=== PATIENT | female | born 1975 | race Caucasian/White ===

== ENCOUNTER 2023-03-18 10:37 | Outpatient (OUT) | payer OTHER, SELFPAY ==
--- NOTE | 2023-03-18 11:27 | PM.CN ---
Consult Note: HPI Data of Consult Patient: known to practice within the last 3 years Consult date: 03/18/23 Requesting Physician: Nic Shelley MD Primary Care Provider: Holly Chambers Consult Narrative Reason for consult: bilateral shoulder pain Narrative: this is a pleasant 47-year-old female who presents for assessment. She notes bilateral shoulder pain, left greater than right. She underwent left rotator cuff repair last August,but she has had persistent pain throughout this area. She underwent five sessions of physical therapy, but her insurance did not approve more sessions. She has increasing difficulty with abduction on the left. She states that she is to undergo repair on the right side this upcoming fall. She previously utilized [place], which provided relief. She currently has been utilizing ibuprofen, which provides minimal relief. She otherwise denies adverse medication side effects or loss of bowel or bladder control. cc:: CC: Nic Shelley MD Review of Systems ROS Status of ROS 10 or more systems reviewed and unremarkable except as noted in history and below Exam Constitutional Common normals: no apparent distress, oriented x3 and healthy appearing Respiratory Common normals: normal respiratory effort Effort & inspection: able to speak in complete sentences Extremity Common normals: normal to inspection Other: tenderness to palpation throughout the bilateral shoulders. Pain is elicited with abduction of the left arm. Pain is elicited with internal and external rotation of the left shoulder. Neuro Common normals: oriented x3, CN's II-XII intact bilaterally and no focal motor deficits Psych Common normals: mental status grossly normal and cooperative Assessment and Plan Assessment and Plan (1) Osteoarthritis of shoulders, bilateral: Plan this is a pleasant 47-year-old female who presents for assessment. She has increasing pain throughout her bilateral shoulders. At this point time, we discussed that it would be reasonable to trial [place] 5 mg twice a day when necessary. I would also like her to trial Celebrex 200 mg twice a day when necessary to see a much this helps with her inflammation. She is in agreement with this plan. We will obtain a urine drug seen today. She will follow up in 2-3 months or sooner, if needed.
== END 2023-03-18 10:38 ==
PROVIDERS: PCP Nurse Practitioner; Visit Provider Anesthesiology
DX: M19.012 Primary osteoarthritis, left shoulder (principal); M19.011 Primary osteoarthritis, right shoulder
CPT/HCPCS: G0463

== ENCOUNTER 2023-04-27 09:55 | Emergency (ER) | payer OTHER, SELFPAY ==
[2023-04-27 10:01] VITALS: BP 123/90; PULSE 103; RESP 18; TEMP 36.8; O2SAT 97; BMI 37.8
--- NOTE | 2023-04-27 11:00 | PC.NURSE ---
c/o dizziness when pt lays on left side, pt use to wear a hearing aid in left ear and is concerned this may be the cause
--- NOTE | 2023-04-27 13:12 | ED_ITS ---
HPI - General Adult General Chief complaint: Dizziness Stated complaint: dizziness Time Seen by Provider: 04/27/23 12:45 Source: patient Mode of arrival: walk-in History of Present Illness HPI narrative: Patient is a 47-year-old female who is presenting to the Emergency Room with chief Complaint of intermittent vertigo when she is lying down at nighttime to sleep or when she lays on her right ear. Patient does have a hearing aid that s he needs to get replaced on the right ear. Patient does have bilateral hearing aids. Patient is deaf. Patient does read lips very well for communication. Patient does have a hearing aid in her left ear, she does not have one in her right ear is Broke. Patient has new medical insurance. Patient is trying to find a new ENT that she can follow up with and also how she can go about Getting a new hearing aid. . All systems are negative except as noted/marked. All systems reviewed and otherwise negative. . Nurses note and vital signs reviewed and patient is not hypoxic. General: The patient appears well and in no apparent distress. Patient is resting comfortably on cart. Patient is not toxic, lethargic, or listless. Communication is with reading lips, patient's redevelops been discussed with her and communication is very clear effective with the patient. Skin: Warm, dry, no pallor noted. There is no rash noted. No petechiae, purpura. Head: Normocephalic, atraumatic Eye: Normal conjunctiva, no drainage, EOMI. PERRL Ears, Nose, Mouth, and Throat: oral mucosa is moist. Nares patent. Mouth without vesicles. Patient does have her hearing aid in her right ear, not her left ear. Patient's left ear shows mild air fluid levels behind left tympanic membrane, no perforation, no bulging, no erythema. No signs of acute infection. No signs of otitis externa. Patient has no tenderness to palpation to the external left ear. No left ear Periauricular lymphadenopathy. Cardiovascular: Regular Rate and Rhythm, no murmur, gallop, rub Respiratory: Patient is in no distress, no accessory muscle use, lungs are clear to auscultation, no wheezing, rales or rhonchi Back: non-tender, GI: soft, no tenderness Musculoskeletal: Patient has full range of motion of all of the extremities, no motor, sensory, or focal neurological deficits Neurological: A&O x3, normal speech Psychiatric: Cooperative Related Data Home Medications Medication Instructions Recorded Confirmed aripiprazole 10 mg tablet 10 mg PO DAILY 03/18/23 03/18/23 buspirone 10 mg tablet 10 mg PO DAILY 03/18/23 03/18/23 celecoxib 200 mg capsule (Celebrex) 200 mg PO BID 03/18/23 03/18/23 cetirizine 10 mg tablet 10 mg PO DAILY 03/18/23 03/18/23 duloxetine 30 mg capsule,delayed 30 mg PO DAILY 03/18/23 03/18/23 release duloxetine 60 mg capsule,delayed 60 mg PO DAILY 03/18/23 03/18/23 release hydrochlorothiazide 25 mg tablet 25 mg PO QAM 03/18/23 03/18/23 hydrocodone 5 mg-acetaminophen 325 1 tab PO BID 03/18/23 03/18/23 mg tablet albuterol sulfate 90 mcg/actuation inhalation 04/27/23 aerosol inhaler atorvastatin 20 mg tablet 20 mg PO DAILY 04/27/23 04/27/23 diclofenac sodium 75 mg 75 mg PO DAILY 04/27/23 04/27/23 tablet,delayed release Previous Rx's Medication Instructions Recorded meclizine 50 mg tablet (Antivert) 50 mg PO DAILY PRN dizziness #7 04/27/23 tabs Allergies Allergy/AdvReac Type Severity Reaction Status Date / Time promethazine [From Phenergan] Allergy Intermediate Rash Verified 04/27/23 10:40 Exam Constitutional Vital Signs, click to edit/add: Last Vital Signs Temp 98.2 F 04/27/23 10:01 Pulse 103 H 04/27/23 10:01 Resp 18 04/27/23 10:01 BP 123/90 H 04/27/23 10:01 Pulse Ox 97 04/27/23 10:01 O2 Del Method Room Air 04/27/23 10:59 Course Vital Signs Vital signs: Vital Signs Temperature 98.2 F 04/27/23 10:01 Pulse Rate 103 H 04/27/23 10:01 Respiratory Rate 18 04/27/23 10:01 Blood Pressure 123/90 H 04/27/23 10:01 Pulse Oximetry 97 04/27/23 10:01 Oxygen Delivery Method Room Air 04/27/23 10:01 Temperature 98.2 F 04/27/23 10:01 Pulse Rate 103 H 04/27/23 10:01 Respiratory Rate 18 04/27/23 10:01 Blood Pressure 123/90 H 04/27/23 10:01 Pulse Oximetry 97 04/27/23 10:01 Oxygen Delivery Method Room Air 04/27/23 10:59 Medical Decision Making MDM Narrative Medical decision making narrative: Patient is evidence of small amount of fluid behind right ear that could be Causing some equilibrium issues or vertigo nighttime when she is lying down. Patient was educated on using Zyrtec or Claritin during the day, Benadryl nighttime. Patient is to use Flonase as well. Education done at bedside and on discharge paperwork. Patient is also given Dr. Lai name and number for follow-up for ENT concerns. Patient was extremely nice. Blameless apologies were given feeling to stay secondary to the Emergency Room volume this morning. Patient understood and was very nice. Discharge Plan Discharge Chief Complaint: Dizziness Clinical Impression: Sinus congestion, Pain in right ear, Vertigo Patient Disposition: Home, Self-Care Condition: Fair Prescriptions / Home Meds: New Antivert 50 mg tablet 50 mg PO DAILY PRN (Reason: dizziness) Qty: 7 0RF No Action duloxetine 30 mg capsule,delayed release(DR/EC) 30 mg PO DAILY Rx Instructions: AT BEDTIME duloxetine 60 mg capsule,delayed release(DR/EC) 60 mg PO DAILY cetirizine 10 mg tablet 10 mg PO DAILY buspirone 10 mg tablet 10 mg PO DAILY hydrochlorothiazide 25 mg tablet 25 mg PO QAM aripiprazole 10 mg tablet 10 mg PO DAILY hydrocodone-acetaminophen 5-325 mg tablet 1 tab PO BID celecoxib [Celebrex] 200 mg capsule 200 mg PO BID atorvastatin 20 mg tablet 20 mg PO DAILY albuterol sulfate 90 mcg/actuation HFA aerosol inhaler INHALATION diclofenac sodium 75 mg tablet,delayed release (DR/EC) 75 mg PO DAILY Instructions: Vertigo (ED), Earache (ED), Dizziness (ED), Cold Symptoms (ED) Additional Instructions: Use [id number] Claritin or Zyrtec during the day, Benadryl nighttime to help dry up some of your sinus congestion. Use [id number] Flonase nasal spray to help with sinus congestion, use Flonase daily. If vertigo would occur again, he can use the meclizine to help with vertigo while laying down at nighttime. Education was given on vertigo as well. Follow-up with ENT, name and number provided. Stand Alone Forms: Portal Instructions Referrals: Melly Lai MD [Physician] - 1 week Holly Chambers [Primary Care Provider] - 1 week
== END 2023-04-27 13:13 | disposition home or self-care (01) ==
PROVIDERS: Emergency Provider Emergency Medicine; PCP Nurse Practitioner
DX: R42 Dizziness and giddiness (principal); H92.01 Otalgia, right ear; R09.81 Nasal congestion; H91.93 Unspecified hearing loss, bilateral; Z79.899 Other long term (current) drug therapy
CPT/HCPCS: 99281

== ENCOUNTER 2023-08-19 07:51 | Outpatient (OUT) | payer OTHER, SELFPAY ==
--- NOTE | 2023-08-19 08:02 | MM_ITS ---
Patient Name: PRASAD REAGAN MR#: [id number] : 1975 Exam Date: 08/19/2023 Ordering Doctor: TULIO Chambers CNP RADIOLOGY REPORT PROCEDURE: MM TOMOSYNTHESIS SCREENING BI COMPARISON: [facility] MAMM SCREEN 3D YOANDY CAD, 06/22/2022. MG MAMM DIAGNOSTIC 3D YOANDY CAD, 06/20/2021. MG MAMM YOANDY DIAG W CAD, 02/02/2014. INDICATIONS: screening Calculator Name NCI Breast Cancer Risk Assessment Tool 5 Year Breast Cancer Risk 1.70% Lifetime Breast Cancer Risk 16.50% Personal Breast Cancer No Personal Ovarian Cancer No Treatments None Family Cancers Sister with breast cancer at age 46. LOCATION: [facility] BREAST COMPOSITION: Heterogeneously dense,which may obscure small masses. FINDINGS: DIAGNOSTIC CATEGORY 2--BENIGN FINDING: RIGHT BREAST: No significant suspicious finding. No significant change has occurred. LEFT BREAST: No significant suspicious finding. Stable benign-appearing lymph node within the anterior lower-inner quadrant. No significant change has occurred. RECOMMENDATIONS: ROUTINE MAMMOGRAM AND CLINICAL EVALUATION IN 12 MONTHS. PLEASE NOTE: A NORMAL MAMMOGRAM DOES NOT EXCLUDE THE POSSIBILITY OF BREAST CANCER. A CLINICALLY SUSPICIOUS PALPABLE LUMP SHOULD BE BIOPSIED. Dictated by: Zane Muñoz M.D. on 08/20/2023 at 13:23 Approved by: Zane Muñoz M.D. on 08/20/2023 at 13:32
--- OUTSIDE RECORDS SUMMARY | 2023-09-24 17:38 | XMS_ITS | CCD ---
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 Name Role Phone Ant CATALAN Attending Unavailable GALLAGHER, MAXWELL Consulting Unavailable AICHHOLZ, CIGAR PATCHER HOLLY Primary Care Unavailable EMMA, DR CHRISTIAN Barros Attending Unavailable EMMA, DR CHRISTIAN Barros Admitting Unavailable GALLAGHER, MAXWELL Consulting Unavailable AICHHOLZ, CIGAR PATCHER HOLLY Primary Care Unavailable EMMA, DR CHRISTIAN Barros Attending Unavailable EMMA, DR CHRISTIAN Barros Admitting Unavailable GALLAGHER, MAXWELL Consulting Unavailable AICHHOLZ, CIGAR PATCHER HOLLY Primary Care Unavailable EMMA, DR CHRISTIAN Barros Attending Unavailable EMMA, DR CHRISTIAN Barros Admitting Unavailable GALLAGHER, MAXWELL Consulting Unavailable AICHHOLZ, CIGAR PATCHER HOLLY Primary Care Unavailable EMMA, DR CHRISTIAN Barros Attending Unavailable EMMA, DR CHRISTIAN Barros Admitting Unavailable GALLAGHER, MAXWELL Consulting Unavailable AICHHOLZ, CIGAR PATCHER HOLLY Primary Care Unavailable EMMA, DR CHRISTIAN Barros Attending Unavailable EMMA, DR CHRISTIAN Barros Admitting Unavailable GALLAGHER, MAXWELL Consulting Unavailable AICHHOLZ, CIGAR PATCHER HOLLY Primary Care Unavailable EMMA, DR CHRISTIAN Barros Attending Unavailable EMMA, DR CHRISTIAN Barros Admitting Unavailable PAY, DR APODACA Consulting Unavailable PAY, DR APODACA Attending Unavailable PAY, DR APODACA Admitting Unavailable AICHHOLZ, CIGAR PATCHER HOLLY Primary Care Unavailable DR ISAIAS FAIRBANKS Consulting Unavailable FRAN SERRANO Attending Unavailable FRAN SERRANO Admitting Unavailable AICHHOLZ, CIGAR PATCHER HOLLY Primary Care Unavailable FRAN SERRANO Consulting Unavailable DR ISAIAS FAIRBANKS Consulting Unavailable FRAN SERRANO Attending Unavailable FRAN SERRANO Admitting Unavailable AICHHOLZ, CIGAR PATCHER HOLLY Primary Care Unavailable FRAN SERRANO Consulting Unavailable DR ISAIAS FAIRBANKS Consulting Unavailable AICHHOLZ, CIGAR PATCHER HOLLY Primary Care Unavailable KAREN KRAUSE Attending Unavailable KAREN KRAUSE Admitting Unavailable KAREN KRAUSE Consulting Unavailable DR Dipak Marks Consulting Unavailable AICHHOLZ, CIGAR PATCHER HOLLY Primary Care Unavailable AICHHOLZ, CIGAR PATCHER HOLLY Attending Unavailable AICHHOLZ, CIGAR PATCHER HOLLY Admitting Unavailable AICHHOLZ, CIGAR PATCHER HOLLY Consulting Unavailable DR ISAIAS FAIRBANKS Consulting Unavailable AICHHOLZ, CIGAR PATCHER HOLLY Primary Care Unavailable GALLAGHER, MAXWELL Attending Unavailable GALLAGHER, MAXWELL Admitting Unavailable GALLAGHER, MAXWELL Consulting Unavailable AICHHOLZ, CIGAR PATCHER HOLLY Consulting Unavailable AICHHOLZ, CIGAR PATCHER HOLLY Primary Care Unavailable AICHHOLZ, CIGAR PATCHER HOLLY Attending Unavailable AICHHOLZ, CIGAR PATCHER HOLLY Admitting Unavailable AICHHOLZ, CIGAR PATCHER HOLLY Consulting Unavailable AICHHOLZ, CIGAR PATCHER HOLLY Primary Care Unavailable AICHHOLZ, CIGAR PATCHER HOLLY Attending Unavailable AICHHOLZ, CIGAR PATCHER HOLLY Admitting Unavailable DR ISAIAS FAIRBANKS Consulting Unavailable DIPAK DIAZ Consulting Unavailable Nic Shelley MD Attending Unavailable Allergies Allergy Classification Reported Allergen(s) Allergy Type Date of Onset Reaction(s) Facility (1 source) Escitalopram; Translations: [Lexapro] Drug Allergy [facility] Repository (1 source) [place] Drug Allergy [facility] Repository Problems Active Problems Problem Classification Problem Date Documented Da te Episodic/Chronic Other nervous system disorders (1 source) Other chronic pain; Translations: [OTHER CHRONIC PAIN] Onset: 02-20-2022 Chronic Other non-traumatic joint disorders (5 sources) Pain in left shoulder; Translations: [PAIN IN LEFT SHOULDER] Onset: 06-29-2022 Episodic Other non-traumatic joint disorders (5 sources) Pain in right shoulder; Translations: [PAIN IN RIGHT SHOULDER] Onset: 02-14-2022 Episodic Spondylosis; intervertebral disc disorders; other back problems (1 source) Cervicalgia; Translations: [CERVICALGIA] Onset: 08-20-2022 Episodic Substance-related disorders (1 source) Nicotine dependence, cigarettes, uncomplicated; Translations: [NICOTINE DEPEND CIGARETTES UNCOMP] Onset: 05-08-2022 Chronic Past or Other Problems Problem Classification Problem Date Documented Da te Episodic/Chronic E Codes: Fall (2 sources) Unspecified fall, initial encounter; Translations: [Fall on same level from slipping, tripping and stumbling with subsequent striking against unspecified object, initial encounter] Onset: 05-08-2022 Episodic Other aftercare (1 source) Other superintendent [employer] (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) drug therapy; Translations: [OTH HALFWAY CURRENT DRUG THERAPY] Onset: 07-17-2022 Episodic Other connective tissue disease (4 sources) Pain in left foot; Translations: [PAIN IN LEFT FOOT] Onset: 07-17-2022 Episodic Other connective tissue disease (4 sources) Bicipital tendinitis, left shoulder; Translations: [BICIPITAL TENDINITIS LEFT SHOULDER] Onset: 05-17-2022 Episodic Other connective tissue disease (3 sources) Pain in left arm; Translations: [PAIN IN LEFT ARM] Onset: 05-02-2022 Episodic Other connective tissue disease (1 source) Unspecified rotator cuff tear or rupture of right shoulder, not specified as traumatic; Translations: [UNS ROT CUFF TEAR/RUPT RT SHOULDER] Onset: 01-01-2022 Episodic Other non-traumatic joint disorders (4 sources) Pain in left ankle and joints of left foot; Translations: [PAIN IN LEFT ANKLE] Onset: 07-16-2022 Episodic Other non-traumatic joint disorders (4 sources) Pain in unspecified joint; Translations: [PAIN IN UNSPECIFIED JOINT] Onset: 04-20-2022 Episodic Other non-traumatic joint disorders (1 source) Pain in left elbow; Translations: [PAIN IN LEFT ELBOW] Onset: 01-01-2022 Episodic Other nutritional; endocrine; and metabolic disorders (4 sources) Polydipsia; Translations: [POLYDIPSIA] Onset: 03-21-2022 Episodic Other screening for suspected conditions (not mental disorders or infectious disease) (4 sources) Encounter for screening mammogram for malignant neoplasm of breast; Translations: [ENC SCR MAMMO MALIG NEOPLASM BREAST] Onset: 06-22-2022 Episodic Residual codes; unclassified (1 source) Family history of malignant neoplasm of breast; Translations: [FAMILY HX MALIG NEOPLASM OF BREAST] Onset: 06-26-2022 Episodic Sprains and strains (2 sources) Sprain of unspecified ligament of left ankle, initial encounter; Translations: [Strain of other muscles, fascia and tendons at shoulder and upper arm level, left arm, initial encounter] Onset: 05-08-2022 Episodic Superficial injury; contusion (3 sources) Abrasion, right knee, initial encounter; Translations: [Contusion of left elbow, initial encounter] Onset: 05-08-2022 Episodic Results Test Name Value Interpretation Reference Range Facil ity MRI Shoulder w/o Lefton MRI Shoulder w/o Left HISTORY: Shoulder pain radiating into the elbow. Patient with syndrome. Bursitis. Adhesive capsulitis. TECHNIQUE: Multiplanar multisequence MRI of the shoulder was performed without contrast. COMPARISON: Shoulder radiographs 09/11/2022. FINDINGS: The acromioclavicular joint is intact. The acromion is curved. Coracoclavicular ligament intact. Small amount of subacromial/subdeltoid bursal fluid containing numerous tiny loose bodies. Full-thickness tear of distal anterior mid fibers of supraspinatus tendon at the footprint measuring approximately 9 mm in AP dimension. Minimal retraction of fibers. Tiny intrasubstance tear along the myotendinous junction of supraspinatus. Posterior fibers remain intact. Moderate supraspinatus tendinosis. Mild infraspinatus tendinosis. Subscapularis and teres minor tendon are intact. No atrophy or fatty infiltration of the rotator cuff musculature. The intra-articular and extra-articular long head biceps tendon is intact. The biceps tendon resides within the bicipital groove. Soft tissue thickening and hyperintense signal within the rotator interval can be seen with adhesive capsulitis. No labral tear identified. No well-defined or measurable cartilage defect identified. No glenohumeral joint effusion. IMPRESSION: Full-thickness tear of the distal anterior and mid fibers of supraspinatus tendon. Soft tissue thickening and hyperintense signal within the rotator interval can be seen with adhesive capsulitis. 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 Sylwia ble to display) August 22, 2022 KENNA TREVIÑO [address] [place] [address] KENNA TREVIÑO 1975 Dear Kenna , We have been trying to reach you with no success. It is important that you return our call regarding your from Holly Chambers upon receiving this letter. Also, at the time of your call, please provide us with your current information. Thank you for your prompt attention to this matter. 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 MG MAMM SCREEN YOANDY W CAD, 04/25/2018. INDICATIONS: Screening mammography Calculator Name NCI Breast Cancer Risk Assessment Tool 5 Year Breast Cancer Risk 1.60% Lifetime Breast Cancer Risk 16.70% Personal Breast Cancer No Personal Ovarian Cancer No Treatments None Family Cancers Sister with breast cancer at age 46. LOCATION: [facility] BREAST COMPOSITION: Heterogeneously dense,which may obscure small masses. FINDINGS: DIAGNOSTIC CATEGORY 2--BENIGN FINDING. NO CHANGE FROM COMPARISON. Scattered benign-appearing nodules are present. Scattered benign-appearing calcifications are present. Scattered benign-appearing lymph nodes are present. RIGHT BREAST: No significant suspicious finding. LEFT BREAST: No significant suspicious finding. Stable well-circumscribed nodule lower inner quadrant, anterior breast. RECOMMENDATIONS: ROUTINE MAMMOGRAM AND CLINICAL EVALUATION IN 12 MONTHS. PLEASE NOTE: A NORMAL MAMMOGRAM DOES NOT EXCLUDE THE POSSIBILITY OF BREAST CANCER. A CLINICALLY SUSPICIOUS PALPABLE LUMP SHOULD BE BIOPSIED. Dictated by: Dipak Marks MD on 06/22/2022 at 11:06 Approved by: Dipak Marks MD on 06/22/2022 at 11:08 Normal [facility] l [place]OLTON by IFAon 04-23-2022 Antinuclear Antibodies, IFA Negative Normal [facility] Comment on above: Result Comment: Nega tive <1:80 Borderline 1:80 Positive >1:80 ICAP nomenclature: AC-0 For more information about Hep-2 cell patterns use ANApatterns.org, the official website for the International Consensus on Antinuclear Antibody ([place]) Patterns (ICAP). Performed By: #### A NAIFA #### [facility] [address] [address] [address] Lucius Mcmahon XR CSPINE 2_3 VIEWSon 2021 XR CSPINE 2_3 VIEWS EXAMINATION: XR CSPI NE 2_3 VIEWS HISTORY: Pain of left shoulder joint ; chronic left neck and arm pain COMPARISON: No relevant comparison available. FINDINGS: BONES: Straightening of the normal lordotic curvature. No significant spondylosis, scoliosis, fracture, or visible bony lesion. DISC SPACES: Minimal narrowing C5-C6. PARASPINOUS: Negative. No paraspinous abnormality is seen. OTHER: Negative. IMPRESSION: 1. C5-C6 minimal disc height reduction, likely early degenerative changes. 2. Straightening of normal lordotic curvature; positioning versus muscle spasm. Electronically authenticated by: ISAIAS FAIRBANKS Date: 2022-04-22 08:21 Normal [facility] l ANTISTREPTOLYSIN O AB (ASO)o n 04-21-2022 Antistreptolysin O Ab 26.6 IU/mL Normal 0.0-200.0 [facility] Comment on above: Performed By: #### A SOAB ####[facility] [id number] [address]Dr. Lucius Mcmahon RHEUMATOID FACTORon 04-21-20 22 RA Latex Turbid. <10.0 Normal <14.[address] [facility] Comment on above: Performed By: #### R F #### [facility] [id number] Lucius Mcmahon XR SHOULDER LT 2V or >on XR SHOULDER LT 2V or > EXAM: XR SHOULDER LT 2V or > HISTORY: Left shoulder pain COMPARISON: None. TECHNIQUE: 3 views FINDINGS: No osseous lesion, fracture, dislocation or subluxation. Joint spaces are normal. No visualized effusion. No visualized soft tissue edema. IMPRESSION: Normal x-rays Electronically authenticated by: DIPAK DIAZ Date: 2022-04-21 21:29 Normal [facility] l CBC AUTO DIFFon 04-20-2022 BASO # 0.0 103/ul Normal 0.0-0.1 [facility] Comment on above: Performed By: #### C BC #### [facility] [address] [place] [address] Dr. Lucius Mcmahon Basophils/100 WBC (Bld) 0.5 % Normal 0.2-2.0 [facility] Comment on above: Performed By: #### C BC #### [facility] [address] [place] [address] Dr. Lucius Mcmahon EO # 0.2 103/ul Normal 0.0-0.7 [facility] Comment on above: Performed By: #### C BC #### [facility] [address] [place] [address] Dr. Lucius Mcmahon Eosinophils/100 WBC (Bld) 2.2 % Normal 0.9-7.0 [facility] Comment on above: Performed By: #### C BC #### [facility] [address] [place] [address] Dr. Lucius Mcmahon Erythrocyte distribution wid th (RBC) [Ratio] 13.4 % Normal 11.0-15.0 [facility] Comment on above: Performed By: #### C BC #### [facility] [address] [place] [address] Dr. Lucius Mcmahon Hematocrit (Bld) [Volume fraction] 46.3 % Normal 3 6.0-48.0 [facility] Comment on above: Performed By: #### C BC #### [facility] [address] [place] [address] Dr. Lucius Mcmahon Hemoglobin (Bld) [Mass/Vol] 14.9 g/dL Normal 12.0-16. 0 [facility] Comment on above: Performed By: #### C BC #### [facility] [address] [place] [address] Dr. Lucius Mcmahon IG # 0.05 10e3/ul Critically high 0.00-0.03 [facility] Comment on above: Performed By: #### C BC #### [facility] [address] [place] [address] Dr. Lucius Mcmahon IG % 0.7 % Critically high 0.0-0.5 [facility] Comment on above: Performed By: #### C BC #### [facility] [address] [place] [address] Dr. Lucius Mcmahon LYMPH # 2.4 103/ul Normal 1.2-3.8 [facility] Comment on above: Performed By: #### C BC #### [facility] [address] [place] [address] Dr. Lucius Mcmahon Lymphocytes/100 WBC (Bld) 32.0 % Normal 20.5-60.0 [facility] Comment on above: Performed By: #### C BC #### [facility] [address] [place] [address] Dr. Lucius Mcmahon MANUAL DIFF REQ NO Normal [facility] Comment on above: Performed By: #### C BC #### [facility] [address] [place] [address] Dr. Lucius Mcmahon MCH (RBC) [Entitic mass] 28.1 pg Normal 26.7-34.0 [facility] Comment on above: Performed By: #### C BC #### [facility] [address] [place] [address] Dr. Lucius Mcmahon MCHC (RBC) [Mass/Vol] 32.2 g/dL Normal 29.9-35.2 [facility] Comment on above: Performed By: #### C BC #### [facility] [address] [place] [address] Dr. Lucius Mcmahon MCV (RBC) [Entitic vol] 87.2 fL Normal 81.0-99.0 [facility] Comment on above: Performed By: #### C BC #### [facility] [address] [place] [address] Dr. Lucius Mcmahon MONO # 0.5 103/ul Normal 0.3-0.8 [facility] Comment on above: Performed By: #### C BC #### [facility] [address] [address] [address] Lucius Mcmahon Monocytes/100 WBC (Bld) 7.2 % Normal 1.7-12.0 [facility] Comment on above: Performed By: #### C BC #### [facility] [address] [place] [address] Dr. Lucius Mcmahon NEUT # 4.3 103/ul Normal 1.4-6.5 [facility] Comment on above: Performed By: #### C BC #### [facility] [address] [place] [address] Dr. Lucius Mcmahon Neutrophils/100 WBC (Bld) 57.4 % Normal 43.0-75.0 [facility] Comment on above: Performed By: #### C BC #### [facility] [address] [place] [address] Dr. Lucius Mcmahon Platelet mean volume (Bld) [Entitic vol] 9.3 fL Critically low 9.5-13.5 [facility] Comment on above: Performed By: #### C BC #### [facility] [address] [place] [address] Dr. Lucius Mcmahon PLT 279 103/ul Normal 150-450 [facility] Comment on above: Performed By: #### C BC #### [facility] [address] [place] [address] Dr. Lucius Mcmahon RBC 5.31 106/ul Normal 4.20-5.40 [facility] Comment on above: Performed By: #### C BC #### [facility] [address] [place] [address] Dr. Lucius Mcmahon WBC 7.4 103/ul Normal 4.0-11.0 [facility] Comment on above: Performed By: #### C BC #### [facility] [address] [place] [address] Dr. Lucius Mcmahon CRPon 04-20-2022 CRP [Mass/Vol] mg/L Normal <=1.0 [facility] Comment on above: Performed By: #### C RP, URIC ####[facility] [id number] [address]Dr. Lucius Mcmahon SED RATE WESTERGRENon 2021 SED RATE 14 mm/hr Normal <=20 [facility] Comment on above: Performed By: #### S EDR #### [facility] [address] [address] [address] Lucius Mcmahon URIC ACID SERUMon 04-20-2022 Urate [Mass/Vol] 4.4 mg/dL Normal 2.6-6.0 [facility] Comment on above: Performed By: #### C RP, URIC ####[facility] [id number] [address]Dr. Lucius Mcmahon GLYCOHEMOGLOBIN A1Con 2021 ADA RECOMMENDATION SEE BELOW Normal [facility] Comment on above: Result Comment: ADA RECOMMENDED LIMIT 4.0 - 6.0 ADA THERAPEUTIC TARGET < 7.0 ACTION SUGGESTED > 7.0 Performed By: #### A 1C #### [facility] [address] [address] [address] Lucius Mcmahon Glucose [Mass/Vol] 108 mg/dL Normal [facility] Comment on above: Performed By: #### A 1C #### [facility] [address] [address] [address] Lucius Mcmahon HbA1c (Bld) [Mass fraction] 5.4 % Normal 4.5-6.2 [facility] Comment on above: Performed By: #### A 1C #### [facility] [address] [address] [address] Lucius Mcmahon PROF CHEM 8 (BAS METB)on Anion gap [Moles/Vol] 10.6 mmol/L Normal [facility] Comment on above: Performed By: #### B MP #### [facility] [address] [place] [address] Dr. Lucius Mcmahon Calcium [Mass/Vol] 8.5 mg/dL Normal 8.5-10.1 [facility] Comment on above: Performed By: #### B MP #### [facility] [address] [address] [address] Lucius Mcmahon Chloride [Moles/Vol] 104 mmol/L Normal 98-107 [facility] Comment on above: Performed By: #### B MP #### [facility] [address] [address] [address] Lucius Mcmahon CO2 [Moles/Vol] 26.8 mmol/L Normal 21.0-32.[address] [facility] Comment on above: Performed By: #### B MP #### [facility] [address] [address] [address] Lucius Mcmahon Creatinine [Mass/Vol] 0.64 mg/dL Normal 0.55-1.02 [facility] Comment on above: Performed By: #### B MP #### [facility] [address] [place] [address] Dr. Lucius Mcmahon EGFR-AF BELIZEAN >60 Normal >=[address] [facility] Comment on above: Performed By: #### B MP #### [facility] [address] [address] [address] Lucius Mcmahon EGFR-NON AF BELIZEAN >60 Normal >=60 [facility] Comment on above: Performed By: #### B MP #### [facility] [address] [address] [address] Lucius Mcmahon Glucose [Mass/Vol] 93 mg/dL Normal 74-106 [facility] Comment on above: Performed By: #### B MP #### [facility] [address] [address] [address] Lucius Mcmahon Potassium [Moles/Vol] 4.4 mmol/L Normal 3.5-5.1 [facility] Comment on above: Performed By: #### B MP #### [facility] [address] [address] [address] Lucius Mcmahon Sodium [Moles/Vol] 137 mmol/L Normal 136-145 [facility] Comment on above: Performed By: #### B MP #### [facility] [address] [address] [address] Lucius Mcmahon Urea nitrogen [Mass/Vol] 10.0 mg/dL Normal 7.0-18.0 [facility] Comment on above: Performed By: #### B MP #### [facility] [address] [address] [address] Lucius Mcmahon Urea nitrogen/Creatinine [Mass ratio] 15.6 mg/mg Normal [facility] Comment on above: Performed By: #### B MP #### [facility] [address] [address] [address] Lucius Mcmahon Encounters Encounter Date Encounter Type Care Provider Facility Start: 03-18-2023 End: 03-19-2023 ambulatory Nic Shelley MD Facility: [facility] Start: 11-15-2022 ambulatory MAXWELL GALLAGHER Facility:[facility] Start: 10-24-2022 ambulatory Ant CATALAN [facility] Start: 08-16-2022 End: 08-17-2022 ambulatory MAXWELL GALLAGHER Facility:[facility] Start: 08-16-2022 ambulatory Ant CATALAN Facility:[facility] Start: 07-17-2022 End: 07-18-[address] ISAIAS FAIRBANKS Facility:[facility] Start: 07-16-2022 End: 07-16-[address] ISAIAS FAIRBANKS Facility:[facility] Start: 06-22-2022 End: 06-23-2022 ambulatory DR Dipak Marks Facility:[facility] Start: 05-17-2022 End: 05-18-2022 ambulatory MAX[place] GALLAGHER Facility:[facility] Start: 05-02-2022 End: 05-02-[address] ISAIAS FAIRBANKS Facility:[facility] Start: 04-20-2022 End: 04-21-2022 ambulatory TULIO CHAMBERS Facility:[facility] Start: 03-21-2022 End: 03-22-2022 ambulatory TULIO CHAMBERS Facility:[facility] Start: 03-01-2022 ambulatory [place] GALLAGHER Facility:H 1 Start: 02-14-2022 End: 02-15-2022 ambulatory MAX[place] GALLAGHER Facility:[facility] Start: 12-27-2021 End: 12-28-[address] ISAIAS FAIRBANKS Facility:[facility] Start: 12-22-2021 End: 12-22-[address] CONSTANZA PAY Facility:[facility]1 Payers Date Payer Category Payer Private Health Insurance 1975 Unknown [id number] 2.16.8 [id number] 1974 Unknown [id number] 2.16.84 [id number] 1974 Unknown [id number] 2.16.84 [id number] 1974 Unknown [id number] 2.16.84 [id number] 1974 Unknown [id number] 2.16.84 [id number] 1974 Unknown [id number] 2.16.84 [id number] 1974 Unknown [id number] 2.16.84 [id number] 1974 Unknown [id number] 2.16.84 [id number] 1974 Unknown [id number] 2.16.84 [id number] 1974 Unknown [id number] 2.16.84 [id number] 1974 Unknown [id number] 2.16.84 [id number] 1974 Unknown [id number] 2.16.84 [id number] 1974 Unknown [id number] 2.16.84 [id number] 1974 Unknown [id number] 2.16.84 [id number] 1974 Unknown [id number] 2.16.84 [id number] 1974 Unknown [id number] 2.16. [id number] 1960 Medicaid [id number] Clinical Notes 12-27-2021 to 08-16-2022 Note Date & Type Note Facility 08-16-2022 Note CONSULTATION CONSULTATION DATE: 08/16/2022 HISTORY OF PRESENT ILLNESS: This is a 46-year-old female returning to the clinic for a three month follow up for her chronic neck and shoulder pain. The patient has been seen here multiple times, but is also under the care of Orthopedics at [facility]. At her last office visit on 05/17/2022, she had a left bicipital tendon injection which afforded her short term relief. She has been under the care of [facility] for some time and, back in February of 2022 was found to have a frozen shoulder as well as a rotator cuff tear. At that time, they had prescribed physical therapy, which the patient has not been overly compliant with. It seems, according to the patient, that there is a communication problem with possibly scheduling. She does have a significant amount of pain to her shoulder. Patient states it does wake her up at night. She recently had a left ankle sprain and has been seen by Dr. Prabhakar's office, and she is currently in a boot. Current medications include duloxetine 60 mg daily, diclofenac 75 mg b.i.d. and [place] 5/325 b.i.d. She is in need of a refill for her diclofenac and [place]. At her last subsequent appointments, education was given to the patient regarding following orders and being compliant with what Orthopedics requests for her shoulder and patient does agree; however, there is minimal to no follow through. Patient's REVIEW OF SYSTEMS / PAST MEDICAL HISTORY / ALLERGIES and IMAGES have been reviewed and they are noted on the chart. PHYSICAL EXAM: VITAL SIGNS: Blood pressure is 156/97. Heart rate is 103. Temperature is 98. She is 5'5 , weighs 113 kg. GENERAL IMPRESSION: Pleasant, appropriate, no acute distress. FOCUSED EXAM - NECK: Range of motion is functional in lateral rotation and flexion/extension. Bilateral cervical trapezius muscles are taut but non-spasmodic. MUSCULOSKELETAL: No vasomotor changes noted to bilateral upper extremities. Anterior and posterior tenderness to palpation to bilateral shoulders, right greater than left. Range of motion is decreased in lateral rotation and adduction/abduction. DIAGNOSIS: Bilateral shoulder pain and cervicalgia. PLAN: We will refill her diclofenac 75 mg b.i.d., [place] 5/325 b.i.d. I explained in detail to the patient that it is her responsibility to call [facility] to obtain a new physical therapy order and to follow through with Ortho's directions. No pain procedures will be done on her shoulder under physical therapy is completed and she has followed through with Orthopedics and their recommendations. I further note that, due to patient's non-compliance with physical therapy, that following this current [place] refill, that any further refills are contingent upon evidence of her at least starting her physical therapy per [facility]. Patient has been aware of this and states agreement of. We will see her in three months' time unless otherwise indicated. [facility] 07-18-2022 Note PROCEDURE: XR ANKLE LT MIN 3 V, XR FOOT LT MIN 3 VIEWS HISTORY: Pain of left ankle joint ; acute lateral left foot and ankle pain after falling COMPARISON: XR ankle left 07/16/2022 FINDINGS: BONES:No fracture, acute abnormality, or significant arthropathy. SOFT TISSUES:Moderate soft tissue swelling surrounding the ankle. EFFUSION:None visible. OTHER: Negative. IMPRESSION: 1. Moderate swelling suggesting soft tissue injury. 2. No acute bone abnormality. Electronically authenticated by: ISAIAS FAIRBANKS Date: 2022-07-18 07:15 [facility] 07-18-2022 Note PROCEDURE: XR ANKLE LT MIN 3 V, XR FOOT LT MIN 3 VIEWS HISTORY: Pain of left ankle joint ; acute lateral left foot and ankle pain after falling COMPARISON: XR ankle left 07/16/2022 FINDINGS: BONES:No fracture, acute abnormality, or significant arthropathy. SOFT TISSUES:Moderate soft tissue swelling surrounding the ankle. EFFUSION:None visible. OTHER: Negative. IMPRESSION: 1. Moderate swelling suggesting soft tissue injury. 2. No acute bone abnormality. Electronically authenticated by: ISAIAS FAIRBANKS Date: 2022-07-18 07:15 [facility] 07-16-2022 Note PROCEDURE: XR ANKLE LT MIN 3 V HISTORY: C/O: a pain ; left ankle pain after falling COMPARISON: None. FINDINGS: BONES:No fracture, acute abnormality, or significant arthropathy. SOFT TISSUES:Moderate soft tissue swelling. No radiopaque foreign body. EFFUSION:None visible. OTHER: Negative. IMPRESSION: 1. Moderate swelling suggesting soft tissue injury. 2. No acute bone abnormality. Electronically authenticated by: ISAIAS FAIRBANKS Date: 2022-07-16 11:29 [facility] 07-16-2022 Note PROCEDURE: XR HUMERU S LT MIN 2V, XR ELBOW LT MIN 3 VIEWS HISTORY: C/O: a pain ; left humerus and elbow pain after falling COMPARISON: None. FINDINGS: BONES:No fracture, acute abnormality, or significant arthropathy. SOFT TISSUES:No visible soft tissue swelling. EFFUSION:None visible. OTHER: Negative. IMPRESSION: 1. No acute bone abnormality or significant degenerative changes of the left humerus and elbow. Electronically authenticated by: ISAIAS FAIRBANKS Date: 2022-07-16 11:27 [facility] 07-16-2022 Note PROCEDURE: XR HUMERU S LT MIN 2V, XR ELBOW LT MIN 3 VIEWS HISTORY: C/O: a pain ; left humerus and elbow pain after falling COMPARISON: None. FINDINGS: BONES:No fracture, acute abnormality, or significant arthropathy. SOFT TISSUES:No visible soft tissue swelling. EFFUSION:None visible. OTHER: Negative. IMPRESSION: 1. No acute bone abnormality or significant degenerative changes of the left humerus and elbow. Electronically authenticated by: ISAIAS FAIRBANKS Date: 2022-07-16 11:27 [facility] 05-17-2022 Note CONSULTATION PROCEDURE DATE: 05/17/2022 PRE AND POSTOPERATIVE DIAGNOSIS: Bicipital tendinitis. PROCEDURE: Left biceps head sheath tendon injection. Subsequent to obtaining informed consent, the patient was placed in the upright sitting neutral position. Alcohol prep was used to sterilize the site. 25-gauge needle with 0.125% Marcaine and 40 mg of Kenalog for a total dose of 3 mL was used. The needle was placed directly into the tendon, negative heme. Medication was injected a slow, steady pattern. The patient tolerated the procedure well and will be followed up in the office. [facility] 05-17-2022 Note CONSULTATION CONSULTATION DATE: 05/17/2022 HISTORY OF PRESENT ILLNESS: This is a 46-year-old female who returns to the clinic for a three month follow up for her chronic bilateral shoulder pain. She was last seen on 02/14/2022 which, at that time, she was sent to orthopedics in [place] for re-evaluation. She has seen them in the past for increased shoulder pain. Patient did go to the ER two weeks ago, diagnosed with a left sprained shoulder. The patient was cleaning her son's house, tripped over a vacuum electrical cord and fell directly on her left arm, striking main impact to her left lateral epicondyle area. She has since had increased left shoulder pain with decreased range of motion. Pain to the right shoulder is chronic. She rates her pain 6/10 today. Medications include baclofen 10 mg b.i.d., Cymbalta 60 mg daily, diclofenac 75 mg b.i.d. and tramadol 50 mg b.i.d. During her ER visit, she was prescribed [place] 5/325 b.i.d., which was beneficial to her. In her appointment with orthopedics, it was recommended to her that MRI imaging was not necessary at this time, that the current imaging was adequate. They did recommend physical therapy in order to regain mobility in order to help control the pain better. Education given to the patient regarding that her adhesive capsulitis is more severe than rotator cuff tear. It was stressed to her that it may take 6-12 months to improve. Patient feels that she does need an MRI is very hesitant about going to physical therapy, as she states years ago physical therapy made her shoulder pain worse. Patient's REVIEW OF SYSTEMS / PAST MEDICAL HISTORY / ALLERGIES and IMAGES have been reviewed and they are noted on the chart. PHYSICAL EXAM: VITAL SIGNS: Blood pressure 160/90, heart rate is 88. Temperature is 97.5. She is 5'5 , weighs 109 kg. GENERAL APPEARANCE: Pleasant and appropriate, no acute distress. MUSCULOSKELETAL: Bilateral shoulder exam reveals decreased range of motion bilaterally, left greater than right. Point tenderness along the musculature with a positive jump response to the bicipital anterior tendon sheath. Deep compression reproduces the patient's primary pain symptomatology today. No crepitus appreciated bilaterally. Motor is 4/5, intact. NEUROLOGICALLY: Patchy hypoesthesia diffusely to her left upper extremities. +1 brachioradialis and triceps reflexes. IMPRESSION: Left bicipital tendonitis, bilateral shoulder pain. PLAN: She will receive a left bicipital tendon sheath injection in the clinic today, which she does agree to. We will manage her pain by discontinuing the tramadol and maintaining her on [place] 5/325 b.i.d. The patient was encouraged to follow through with physical therapy as ordered per orthopedics. We will see her in three month's time, unless otherwise indicated. Patient acknowledges. [facility] 05-02-2022 Note PROCEDURE: XR FOREAR M LT 2 VIEWS, XR HUMERUS LT MIN 2V HISTORY: Pain ; left humerus and forearm pain after falling COMPARISON: None. FINDINGS: BONES:No fracture, acute abnormality, or significant arthropathy. SOFT TISSUES:No visible soft tissue swelling. EFFUSION:None visible. OTHER: Negative. IMPRESSION: 1. No acute bone abnormality of the left humerus or forearm. Electronically authenticated by: ISAIAS FAIRBANKS Date: 2022-05-02 11:54 [facility] 05-02-2022 Note PROCEDURE: XR FOREAR M LT 2 VIEWS, XR HUMERUS LT MIN 2V HISTORY: Pain ; left humerus and forearm pain after falling COMPARISON: None. FINDINGS: BONES:No fracture, acute abnormality, or significant arthropathy. SOFT TISSUES:No visible soft tissue swelling. EFFUSION:None visible. OTHER: Negative. IMPRESSION: 1. No acute bone abnormality of the left humerus or forearm. Electronically authenticated by: ISAIAS FAIRBANKS Date: 2022-05-02 11:54 [facility] 02-14-2022 Note CONSULTATION CONSULTATION DATE: 02/14/2022 HISTORY: This is a 46-year-old female who is returning to the clinic for x-ray review of her right shoulder. She was last seen at the end of December and is complaining of increased left elbow and right shoulder pain. She has had surgical revision by Dr. Luo in the past to the right shoulder. Today, patient states she has increased pain. She is unable to adduct the arm 90 degrees. During her last appointment, she was referred to [place] [facility] and, according to the patient, they never called for an appointment. A re-referral will be sent on her behalf. Shoulder x-rays reveal a right humeral head, prior rotator cuff repair. Negative for new fracture or dislocation. Narrowing of the AC joint with undersurface osteophytes are seen. Glenohumeral joint is unremarkable. Activities that aggravate the pain are lifting, pulling, pushing, bending and physical activity. The patient states she is unable to lay flat in bed secondary to the pain. She needs to prop herself up with a pillow under her right shoulder. Current medications include duloxetine, BuSpar, diclofenac and tramadol 50 mg b.i.d. Patient does take the tramadol occasionally, as it seems to take the sharpness off of her pain. Patient's REVIEW OF SYSTEMS / PAST MEDICAL HISTORY / ALLERGIES and IMAGES have been reviewed and they are noted on the chart. PHYSICAL EXAM: VITALS: Blood pressure is 140/88. Heart rate is 83. Temperature is 97.5. She is 5'5 and weighs 107 kg. GENERAL APPEARANCE: Pleasant, cooperative, no acute distress while sitting. FOCUSED EXAM: Shoulder exam is unchanged from her prior visit. Limited range of motion with slight muscle atrophy to the right upper extremity from disuse. Brachioradialis is +1 to the right. Fine and gross motor are intact. IMPRESSION: Chronic right shoulder pain. PLAN: As discussed with the patient, we will re-send her orthopedic referral to [place] [facility]. Patient is also provided the number and was instructed, if they do not call within five days, to call them. Refill for her tramadol 50 mg b.i.d. will be sent as well. Patient was asked to call the office with an update once she is seen by orthopedics. Patient states understanding and agrees with the plan of care. [facility] Signed and Approved by: [place] GALLAGHER . 02/15/2022 12:52:00 [facility] 12-27-2021 Note PROCEDURE: XR SHOULD ER RT 2V or > HISTORY: Pain of right shoulder joint , chronic COMPARISON: XR shoulder right 01/31/2019 FINDINGS: BONES:Bone anchor within humeral head from prior rotator cuff repair. No fracture, dislocation, or bone lesion. Narrowing of the acromioclavicular joint with small undersurface osteophytes. Unremarkable glenohumeral joint. SOFT TISSUES:No visible soft tissue swelling. EFFUSION:None visible. OTHER: Negative. IMPRESSION: 1. No acute bone abnormality. 2. Mild degenerative changes of the acromioclavicular joints. 3. Evidence of prior rotator cuff repair. Electronically authenticated by: ISAIAS FAIRBANKS Date: 2021-12-27 14:29 [facility] 12-27-2021 Note CONSULTATION PAIN MANAGEMENT CONSULTATION HISTORY OF PRESENT ILLNESS: This is a 46-year-old female who arrived numerous hours early to her appointment. She is being seen here for chronic right shoulder pain and was referred from her PCP, Holly Chambers. She was last seen by Dr. Camara in August of 2021 which, at that time, she was prescribed diclofenac 75 mg b.i.d. and was to obtain a right shoulder x-ray. The patient did not obtain the x-ray nor start her medication. She has been difficult to reach as she was not answering her phone. She returns today for re-evaluation and to discuss with the patient the need of follow through with her treatments. 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 She has followed up with Dr. Luo in the past and, according to the patient, has placed metal pieces in her shoulder. She is unable to raise her arm past her shoulder. All activity aggravates her pain. She was placing ice on it, but was discouraged at her last appointment to use heat. She is currently not using heat or heat rub. Medications include duloxetine, BuSpar and ibuprofen 400 mg daily. The patient is hearing impaired. Patient's REVIEW OF SYSTEMS / PAST MEDICAL HISTORY / ALLERGIES and IMAGES have been reviewed and they are noted in the chart. PHYSICAL EXAM: VITAL SIGNS: Blood pressure 124/88, heart rate 79, oxygen 96%. She is 5'5 and weighs 105 kg. FOCUSED EXAM - RIGHT SHOULDER EXAM: No crepitus noted to movement. Patient unable to adduct or abduct arm past the level of her shoulder. No edema noted. Anterior tenderness to direct palpation along the humeral head. LEFT ELBOW: Epicondyle tenderness laterally to palpation. Negative crepitus or edema. MUSCULOSKELETAL: Motor is intact, 4/5 bilateral upper extremities. NEUROLOGICAL: +1 brachioradialis reflexes bilaterally. Negative polyneuropathy. IMPRESSION: Right shoulder pain, right rotator cuff syndrome and left elbow pain. PLAN: The patient is to follow through with her right shoulder x-ray. I discussed using heat in addition to Vicks and Voltaren gel together to her left elbow and right shoulder. Once again, I discussed vitamin importance as well as nutritional importance. Patient will be brought back in two months' time for re-evaluation and to discuss her x-ray results. Patient agrees with plan of care and would like to proceed. [facility] Signed and Approved by: MAXWELL GALLAGHER . 01/11/2022 16:24:00 [facility] Summary Purpose Family History No Family History Records FoundNo Family History Records FoundNo Family History Records FoundNo Family History Records Found Advance Directives No Advanced Directives Records FoundNo Advanced Directives Records FoundNo Advanced Directives Records FoundNo Advanced Directives Records Found Additional Source Comments INFORMATION SOURCE (unrecogn ized section and content) DATE CREATED AUTHOR 10/11/2022 [facility] dical Specialist DATE CREATED AUTHOR AUTHOR'S ORGANIZ ATION 10/19/2022 [facility] DATE CREATED AUTHOR AUTHOR'S ORGANIZ ATION 11/15/2022 [facility] DATE CREATED AUTHOR AUTHOR'S ORGANIZ ATION 04/01/2023 [facility] FOR RECORDS PERTAINING TO PATIENTS WHO ARE OR HAVE BEEN ENROLLED IN A CHEMICAL DEPENDENCY/SUBSTANCEABUSE PROGRAM, SOME INFORMATION MAY BE OMITTED. This clinical summary was aggregated from multiple sources. Caution should be exercised in using it in the provision of clinical care. This summary normalizes information from multiple sources, and as a consequence, information in this document may materially change the coding, format and clinical context of patient data. In addition, data may be omitted in some cases. CLINICAL DECISIONS SHOULD BE BASED ON THE PRIMARY CLINICAL RECORDS. [facility] [employer] [facility]. provides no warranty or guarantee of the accuracy or completeness of information in this document.
== END 2023-08-19 07:52 | disposition home or self-care (01) ==
LOC: MAMMO 07:51
PROVIDERS: PCP Nurse Practitioner; Visit Provider Nurse Practitioner
DX: Z12.31 Encounter for screening mammogram for malignant neoplasm of breast (principal); Z80.3 Family history of malignant neoplasm of breast
CPT/HCPCS: 77063; 77067

== ENCOUNTER 2024-01-27 14:00 | Outpatient (OUT) | payer OTHER, SELFPAY | END 2024-01-27 14:01 | disposition home or self-care (01) | LOC: PST 01-28 14:54 | PROVIDERS: PCP Nurse Practitioner; Visit Provider Surgery | DX: Z01.818 Encounter for other preprocedural examination (principal); R10.9 Unspecified abdominal pain; K62.89 Other specified diseases of anus and rectum; K62.5 Hemorrhage of anus and rectum; R19.4 Change in bowel habit; R11.0 Nausea ==

== ENCOUNTER 2024-02-05 07:29 | Day surgery (SDC) | payer OTHER, SELFPAY ==
--- NOTE | 2024-02-05 | OP_ITS ---
OPERATION DATE: 02/05/2024 PREOPERATIVE DIAGNOSIS: Epigastric pain, change in bowel habits. POSTOPERATIVE DIAGNOSIS: Small hiatal hernia, bile reflux, mild antral gastritis and 4 mm ascending colon polyp. PROCEDURE: EGD with antral biopsy and colonoscopy to cecum with cold snare polypectomy x1. SURGEON: Ant Traylor M.D. ANESTHESIA: Monitored anesthesia care. ESTIMATED BLOOD LOSS: Less than 2 mL. INDICATIONS AND CONSENT: Patient is a 48-year-old female with history of intermittent epigastric and mid abdominal pain, as well as gastroesophageal reflux disease. She also reports change in bowel habits with alternating diarrhea and constipation. Indications, risks, benefits, alternatives of proceeding with EGD and colonoscopy were explained extensively to the patient, including the risks of bleeding, aspiration, esophageal/gastric/duodenal or colonic perforation or anesthetic complications. All of her questions were answered. Informed consent was obtained. PROCEDURE: Patient brought to the operating room, placed in the left lateral decubitus position. Monitored anesthesia care was provided. Bite block was placed in the patient?s mouth. Scope was inserted into the oropharynx. Under direct visualization, it was advanced into the esophagus, past the cricopharyngeus, down to the stomach. The stomach was insufflated with air. The pylorus was traversed down to the descending portion of the duodenum. There was no evidence of duodenitis or ulceration. There was no scarring within the pyloric channel. Scope was pulled back into the stomach and retroflexed. There was a small, sliding type hiatal hernia, as well as a moderate amount of bile throughout the stomach. There was mild antral gastritis without ulcerations or bleeding. Biopsies were obtained with cold biopsy forceps with good hemostasis of the antrum. The GE junction was noted at 38 cm. There was no distal esophagitis or Ruvalcaba?s changes. Remainder of the esophagus was unremarkable. The scope was then withdrawn. Patient tolerated the procedure well. Patient was then positioned for colonoscopy. Rectal exam was performed, which showed no masses or blood. The scope was then inserted into the anal canal. Under direct visualization, it was advanced. With the aid of abdominal compression, it was advanced to the cecum where cecal markings were clearly identified. The terminal ileum was intubated and noted to be normal. Upon withdrawal of the scope, mucosal surfaces were carefully examined. There were no mass lesions or inflammatory changes. Within the ascending colon, there was noted to be a 4 mm flat sessile polyp that was removed with cold snare with good hemostasis. No other mass lesions or polyps. No significant diverticulosis. There was redundancy of the colon with some spasm. The scope was retroflexed in the anal canal. There was no significant hemorrhoidal disease, some prominent rectal veins. The scope was then withdrawn. The patient tolerated procedure well, was sent to recovery room in good condition. f/u colonoscopy likely in 5 years, but will depend on pathology results. CC: Holly Chambers, TULIO PEARSOND
--- OUTSIDE RECORDS SUMMARY | 2024-02-05 07:34 | XMS_ITS | CCD ---
Author Organization [facility] Care Team Providers Care Senior Manager Creative Services Name Role Phone MAXWELL GALLAGHER Consulting Unavailable AICHHOLZ, MANAGER GROCERY HOLLY Primary Care Unavailable EMMA, DR CHRISTIAN Barros Attending Unavailable EMMA, DR CHRISTIAN Barros Admitting Unavailable GALLAGHER, MAXWELL Consulting Unavailable AICHHOLZ, MANAGER GROCERY HOLLY Primary Care Unavailable EMMA, DR CHRISTIAN Barros Attending Unavailable EMMA, DR CHRISTIAN Barros Admitting Unavailable GALLAGHER, MAXWELL Consulting Unavailable AICHHOLZ, MANAGER GROCERY HOLLY Primary Care Unavailable EMMA, DR CHRISTIAN Barros Attending Unavailable EMMA, DR CHRISTIAN Barros Admitting Unavailable GALLAGHER, MAXWELL Consulting Unavailable AICHHOLZ, MANAGER GROCERY HOLLY Primary Care Unavailable EMMA, DR CHRISTIAN Barros Attending Unavailable EMMA, DR CHRISTIAN Barros Admitting Unavailable GALLAGHER, MAXWELL Consulting Unavailable AICHHOLZ, MANAGER GROCERY HOLLY Primary Care Unavailable EMMA, DR CHRISTIAN Barros Attending Unavailable EMMA, DR CHRISTIAN Barros Admitting Unavailable GALLAGHER, MAXWELL Consulting Unavailable AICHHOLZ, MANAGER GROCERY HOLLY Primary Care Unavailable EMMA, DR CHRISTIAN Barros Attending Unavailable DR CHRISTIAN CAMARA Admitting Unavailable PAY, DR APODACA Consulting Unavailable PAY, DR APODACA Attending Unavailable PAY, DR APODACA Admitting Unavailable AICHHOLZ, MANAGER GROCERY HOLLY Primary Care Unavailable DR ISAIAS FAIRBANKS Consulting Unavailable FRAN SERRANO Attending Unavailable FRAN SERRANO Admitting Unavailable AICHHOLZ, MANAGER GROCERY HOLLY Primary Care Unavailable FRAN SERRANO Consulting Unavailable DR ISAIAS FAIRBANKS Consulting Unavailable FRAN SERRANO Attending Unavailable FRAN SERRANO Admitting Unavailable AICHHOLZ, MANAGER GROCERY HOLLY Primary Care Unavailable FRAN SERRANO Consulting Unavailable DR ISAIAS FAIRBANKS Consulting Unavailable AICHHOLZ, MANAGER GROCERY HOLLY Primary Care Unavailable KAREN KRAUSE Attending Unavailable KAREN KRAUSE Admitting Unavailable KAREN KRAUSE Consulting Unavailable DR Dipak Marks Consulting Unavailable AICHHOLZ, MANAGER GROCERY HOLLY Primary Care Unavailable AICHHOLZ, MANAGER GROCERY HOLLY Attending Unavailable AICHHOLZ, MANAGER GROCERY HOLLY Admitting Unavailable AICHHOLZ, MANAGER GROCERY HOLLY Consulting Unavailable DR ISAIAS FAIRBANKS Consulting Unavailable AICHHOLZ, MANAGER GROCERY HOLLY Primary Care Unavailable GALLAGHERMAXWELL Attending Unavailable GALLAGHER, MAXWELL Admitting Unavailable GALLAGHER, MAXWELL Consulting Unavailable AICHHOLZ, MANAGER GROCERY HOLLY Consulting Unavailable AICHHOLZ, MANAGER GROCERY HOLLY Primary Care Unavailable AICHHOLZ, MANAGER GROCERY HOLLY Attending Unavailable AICHHOLZ, MANAGER GROCERY HOLLY Admitting Unavailable AICHHOLZ, MANAGER GROCERY HOLLY Consulting Unavailable AICHHOLZ, MANAGER GROCERY HOLLY Primary Care Unavailable AICHHOLZ, MANAGER GROCERY HOLLY Attending Unavailable AICHHOLZ, MANAGER GROCERY HOLLY Admitting Unavailable DR ISAIAS FAIRBANKS Consulting Unavailable DIPAK DIAZ Consulting Unavailable Karsten LÓPEZ, Nic Cheng Attending Unavailable Andrés Richardson MD Primary Care Provider AICHHOLZ, HOLLY Attending Unavailable AICHHOLZ, HOLLY Attending Unavailable AICHHOLZ, HOLLY J Primary Care Physician Ant CATALAN Attending Unavailable AICHHOLZ, HOLLY J Referring Unavailable Mary Ellen Siddiqi Attending Unavailable AICHHOLZ, HOLLY J Referring Unavailable AICHHOLZ, HOLLY J Primary Care Unavailable ANDRÉS RICHARDSON Primary Care Unavailable Allergies Allergy Classification Reported Allergen(s) Allergy Type Date of Onset Reaction(s) Facility (1 source) Levamisole Drug Allergy [facility] Repository (2 sources) Escitalopram; Translations: [escitalopram] Drug Allergy Unknown (qualifier value) General Surgery [facility] Medications Current Medications Medication Drug Class(es) Dates Sig (Normalized) Sig (Original) acetaminophen 500 mg oral tablet (1 source) Start: 08-16-2023 take 1 tablet by mouth every six hours as needed for pain acetaminophen (TYLENOL EXTRA STRENGTH) 500 mg tablet Take 1 tablet (500 mg total) by mouth every 6 (six) hours as needed for pain. 30 tablet 0 08/16/2023 Active [id number] 200 actuat albuterol 0.09 mg/actuat metered dose inhaler (1 source) beta2-Adrenergic Agonist take 2 puff(s) by inhalation every six hours as needed for wheezing albuterol (PROVENTIL HFA;VENTOLIN HFA) 90 mcg/actuation inhaler Inhale 2 puffs every 6 (six) hours as needed for wheezing. 0 Active albuterol HFA 90 mcg/inh MDI (1 source) Start: 09-19-2022 take 2 puff(s) by inhalation every six hours albuterol HFA 90 mcg/inh MDI 2 puff(s), Inhalation, q6hr Shortness of breath or wheezing, Refill(s) 0 Start Date: 09/19/22 Status: Ordered ARIPiprazole 5 mg oral tablet (1 source) Atypical Antipsychotic Start: 09-19-2022 take 1 tablet by mouth once daily aripiprazole 5 mg Tab 5 mg = 1 tab(s), Oral, Daily, Refills(s) 0 Start Date: 09/19/22 Status: Ordered busPIRone hydrochloride 10 mg oral tablet (2 sources) Start: 09-19-2022 take 1 tablet by mouth twice daily busPIRone 10 mg Tab 10 mg = 1 tab(s), Oral, BID, Refills(s) 0 Start Date: 09/19/22 Status: Ordered take 2 tablets by mouth at bedti me busPIRone (BUSPAR) 10 mg tablet Take 2 tablets (20 mg total) by mouth in the morning and at bedtime. 0 Active cetirizine hydrochloride 10 mg oral tablet (2 sources) Histamine-1 Receptor Antagonist Start: 01-07-2019 take 1 tablet by mouth once daily cetirizine 10 mg Tab 10 mg = 1 tab(s), Oral, Daily, Refills(s) 0 Start Date: 09/19/22 Status: Ordered cyclobenzaprine hydrochloride 10 mg oral tablet (1 source) Muscle Relaxant Start: 03-16-2022 cyclobenzaprine (FLEXERIL) 10 mg tablet Take 1 tablet (10 mg total) by mouth as needed in the morning and 1 tablet (10 mg total) as needed in the evening for muscle spasms. 10 tablet 0 03/16/2022 Active docusate sodium 100 mg oral capsule (1 source) take 1 capsule by mouth twice daily docusate sodium (COLACE) 100 mg capsule Take 100 mg by mouth 2 (two) times a day. 0 Active DULoxetine 60 mg delayed release oral capsule (1 source) Serotonin and Norepinephrine Reuptake Inhibitor take 1 capsule by mouth in the morning DULoxetine (CYMBALTA) 60 mg capsule Take 1 capsule (60 mg total) by mouth in the morning. 0 Active duloxetine 60 mg Cap-DR (1 source) Start: 09-19-2022 take 1 capsule by mouth once daily duloxetine 60 mg Cap-DR 60 mg, Oral, Daily, Refills(s) 0 Start Date: 09/19/22 Status: Ordered fluticasone / vilanterol (2 sources) Corticosteroid, beta2-Adrenergic Agonist Start: 12-04-2023 take 1 puff(s) by inhalation once daily Breo Ellipta 100 mcg-25 mcg inhalation powder 1 puff(s), Inhalation, Daily, Refill(s) 0 Start Date: 12/04/23 Status: Ordered take 1 puff(s) by in halation once daily fluticasone furoate-vilanterol (BREO ELL IPTA) 100-25 mcg/dose blister with device Inhale 1 puff daily. 0 Active gabapentin 300 mg oral capsule (2 sources) Anti-epileptic Agent Start: 12-14-2020 take 1 capsule by mouth three times daily gabapentin (NEURONTIN) 300 mg capsule Indications: Chronic right shoulder pain Take 1 capsule (300 mg total) by mouth 3 (three) times a day. 90 capsule 1 12/15/2020 Active ibuprofen 800 mg oral tablet (2 sources) Nonsteroidal Anti-inflammatory Drug Start: 08-16-2023 take 1 tablet by mouth three times daily ibuprofen (MOTRIN) 800 mg tablet Take 1 tablet (800 mg total) by mouth 3 (three) times a day. 30 tablet 0 08/16/2023 Active Start: 09-19-2022 take 1 tablet by rosalinda th every eight hours as needed for pain ibuprofen 800 mg Tab 800 mg = 1 tab(s), Oral, q8hr, PRN as needed for pain, Refills(s) 0 Start Date: 09/19/22 Status: Ordered lidocaine 0.05 mg/mg medicated patch (1 source) Antiarrhythmic, Amide Local Anesthetic Start: 08-16-2023 apply 1 dose transdermal route once daily, then apply 1 dose transdermal route every twelve hours lidocaine (LIDODERM) 5 % Place 1 patch on the skin daily. Remove & Discard patch within 12 hours or as directed by 15 patch 0 08/16/2023 Active methylPREDNISolone (1 source) Corticosteroid Start: 08-16-2023 methylPREDNISolone (MEDROL, FLACO,) 4 mg tablet follow package directions 21 tablet 0 08/16/2023 Active omeprazole 40 mg delayed release oral capsule (1 source) Proton Pump Inhibitor Start: 09-19-2022 take 1 capsule by mouth once daily omeprazole 40 mg Cap-DR 40 mg = 1 cap(s), Oral, Daily, Refills(s) 0 Start Date: 09/19/22 Status: Ordered tiZANidine 4 mg oral tablet (1 source) Central alpha-2 Adrenergic Agonist Start: 09-19-2022 take 1 tablet by mouth twice daily as needed for muscle spasms tiZANidine 4 mg Tab 4 mg = 1 tab(s), Oral, BID, PRN Spasm, Refills(s) 0 Start Date: 09/19/22 Status: Ordered Problems Active Problems Problem Classification Problem Date Documented Da te Episodic/Chronic Abdominal pain (2 sources) Epigastric pain; Translations: [Epigastric pain] Onset: 4 Episodic Anxiety disorders (1 source) Anxiety 09-19-2022 Chronic Asthma (1 source) Asthma 09-19-2022 Chronic Disorders of lipid metabolism (1 source) Mixed hyperlipidemia; Translations: [Mixed hyperlipidemia] Onset: 3 Chronic Disorders of teeth and jaw (3 sources) Dental caries, unspecified; Translations: [Other specified disorders of teeth and supporting structures] Onset: 4 Episodic Esophageal disorders (1 source) Gastroesophageal reflux disease 09-19-2022 Chronic Mood disorders (2 sources) Bipolar disorder; Translations: [Depressive disorder] 09-19-2022 Chronic Other ear and sense organ disorders (1 source) Hearing loss 09-19-2022 Chronic Other gastrointestinal disorders (2 sources) Altered bowel function; Translations: [Change in bowel habit] Onset: 4 Episodic Other nervous system disorders (1 source) Other chronic pain; Translations: [OTHER CHRONIC PAIN] Onset: 2 Chronic Other nervous system disorders (1 source) Peripheral nerve disease 09-19-2022 Chronic Other non-traumatic joint disorders (5 sources) Pain in left shoulder; Translations: [PAIN IN LEFT SHOULDER] Onset: 2 Episodic Other non-traumatic joint disorders (5 sources) Pain in right shoulder; Translations: [PAIN IN RIGHT SHOULDER] Onset: 2 Episodic Other nutritional; endocrine; and metabolic disorders (2 sources) Body mass index 40+ - severely obese; Translations: [Body mass index (BMI) 40.0-44.9, adult] Onset: 4 Chronic Other nutritional; endocrine; and metabolic disorders (1 source) Morbid obesity 09-19-2022 Chronic Other upper respiratory disease (1 source) Seasonal allergy 09-19-2022 Chronic Residual codes; unclassified (2 sources) Tobacco user; Translations: [Tobacco use] Onset: 4 Episodic Residual codes; unclassified (1 source) Edema of lower extremity 09-19-2022 Episodic Screening and history of mental health and substance abuse codes (1 source) Tobacco use and exposure - finding 12-24-2023 Chronic Spondylosis; intervertebral disc disorders; other back problems (1 source) Cervicalgia; Translations: [CERVICALGIA] Onset: 2 Episodic Substance-related disorders (1 source) Nicotine dependence, cigarettes, uncomplicated; Translations: [NICOTINE DEPEND CIGARETTES UNCOMP] Onset: 2 Chronic Unclassified (1 source) MOUNTH PAIN LEFT SIDE Onset: 4 Past or Other Problems Problem Classification Problem Date Documented Da te Episodic/Chronic E Codes: Fall (2 sources) Unspecified fall, initial encounter; Translations: [Fall on same level from slipping, tripping and stumbling with subsequent striking against unspecified object, initial encounter] Onset: 05-08-2022 Episodic Mood disorders (1 source) Mood disorders Onset: 09-19-2020 09-19-2020 Other aftercare (1 source) Other senior care (current) drug therapy; Translations: [OTH CARE HOME CURRENT DRUG THERAPY] Onset: 07-17-2022 Episodic Other [...] Results Test Name Value Interpretation Reference Range Facility Insurance Correspondenceon 0 01-23-2024 Insurance Correspondence [id number]# 1.00TIFF [facility] Consent for Procedure/Surger yon 12-25-2023 Consent for Procedure/Surgery [id number]#1 .00TIFF Normal [facility] Facesheeton 12-25-2023 Facesheet [id number]# 1.00TIFF Normal [facility] Ambulatory Visit Summaryon 0 12-24-2023 Ambulatory Visit Summary KENNA TREVIÑO :1975 Visit Date:12/24/2023 Ambulatory Visit Instructions Your Care Team Attending Physician - ALAYNA LÓPEZ, Ant Blood Primary Care Physician - TONE ANTUNEZ, HOLLY Metcalf Referring Physician - HOLLY CHAMBERS CNP This Is Your Medications List Contact prescribing physician if questions or concerns albuterol (albuterol HFA 90 mcg/inh MDI) aripiprazole (aripiprazole 5 mg Tab) busPIRone (busPIRone 10 mg Tab) cetirizine (cetirizine 10 mg Tab) duloxetine (duloxetine 60 mg Cap-DR) fluticasone-vilantero l (Breo Ellipta 100 mcg-25 mcg inhalation powder) gabapentin (gabapentin 300 mg Cap) ibuprofen (ibuprofen 800 mg Tab) omeprazole (omeprazole 40 mg Cap-DR) tizanidine (tiZANidine 4 mg Tab) Procedures Performed Abdominal hysterectomy and left salpingo-oophorectomy , Anal sphincterotomy, Cholecystectomy, Dilation and curettage, Endometrial ablation, Epicondyle, Hemorrhoidectomy, Hysteroscopy, Laparoscopy, Revision of repair of rotator cuff, Right salpingectomy, Rotator cuff repair, Tubal ligation. Discharge Vitals Heart Rate (Peripheral) 80 Respiratory Rate 16 Blood Pressure 128/88 Height 165 cm Height 65 in Weight 119.3 kg Weight 262.46 lb BMI 43.82 Medications What How Much When Instructions Unchanged albuterol (albuterol HFA 90 mcg/ inh MDI) 2 Puffs Inhalation Every 6 hours as needed for Shortness of breath or wheezing Contact prescribing physician if questions or concerns Unchanged aripiprazole (aripiprazole 5 mg Tab) 1 Tablets By Mouth Every day Contact prescribing physician if questions or concerns Unchanged busPIRone (busPIRone 10 mg Tab) 1 Tablets By Mouth 2 times a day Contact prescribing physician if questions or concerns Unchanged cetirizine (cetirizine 10 mg Tab) 1 Tablets By Mouth Every day Contact prescribing physician if questions or concerns Unchanged duloxetine (duloxetine 60 mg Cap-DR) 60 Milligram By Mouth Every day Contact prescribing physician if questions or concerns Unchanged fluticasone-vilantero l (Breo Ellipta 100 mcg-25 mcg inhalation powder) 1 Puffs Inhalation Every day Contact prescribing physician if questions or concerns Unchanged gabapentin (gabapentin 300 mg Cap) 1 Capsules By Mouth 3 times a day Contact prescribing physician if questions or concerns Unchanged ibuprofen (ibuprofen 800 mg Tab) 1 Tablets By Mouth Every 8 hours as needed for as needed for pain Contact prescribing physician if questions or concerns Unchanged omeprazole (omeprazole 40 mg Cap-DR) 1 Capsules By Mouth Every day Contact prescribing physician if questions or concerns Unchanged tizanidine (tiZANidine 4 mg Tab) 1 Tablets By Mouth 2 times a day as needed for Spasm Contact prescribing physician if questions or concerns Medications and Immunizations Administered Not Given influenza virus vaccine, inactivated, Patient Refuses Allergies Lexapro (Unknown) Problems Ongoing - Any problem that you are currently receiving treatment for. Anxiety Asthma Bipolar disorder BMI 40.0-44.9, adult Depression GERD (gastroesophageal reflux disease) Hearing loss Lower extremity edema Morbid obesity Peripheral neuropathy Seasonal allergies Tobacco user Patient Survey You may receive a survey via text or e-mail asking about your office visit. Please share your experience with us by completing your survey. We appreciate your feedback and thank you for choosing us for your care. [facility] Physician Referralon 024 Physician Referral [id number] .00TIFF [facility] Provider Letteron 10-14-2023 Provider Letter October 14, 2023 KENNA TREVIÑO [address] [place] [address] : 1975 Dear Ms. Treviño, We have been trying to reach you with no success regarding a referral we received from Holly Chambers. It is important that you return our call upon receiving this letter so that we can set up an appointment for you. Also, at the time of your call, please provide us with your current demographic and insurance information. Thank you for your prompt attention to this matter. Sincerely, [facility] General Surgery [phone] Normal [facility] Comment on above: Other Comment: Incor rect address. Replaced with corrected copy. mxs Provider Letter October 04, 2023 KENNAASHLYN [place] [address] [place] [address] : 1975 Dear Kenna , We have been trying to reach you with no success. It is important that you return our call regarding scheduling your consultation appointment per the referral received from Karrie upon receiving this letter. Also, at the time of your call, please provide us with your current information. Thank you for your prompt attention to this matter. Sincerely, [facility] General Surgery [phone] Letter was sent back to office on 10/14/23. Came back due to Insufficient Address. Contacted Holly Chambers' office to get updated address for patient. Left vm. mxs Normal [facility] ALT No additional P-5'-P [Ca talytic activity/Vol]on 10-04-2023 ALT [Catalytic activity/Vol] 34 U/L High 0-31 [facility] Comment on above: Performed By: #### 1 744-2, 1920-05, 88953-5 #### [facility] ([id number]) [address], [address] [place] [address] Tylro 10-04-2023 AST [Catalytic activity/Vol] 19 U/L Normal 0-41 [facility] Comment on above: Performed By: #### 1 744-2, 1920-05, 93673-2 #### [facility] ([id number]) [address], [address] [place] [address] Lipid 1996 panelon Cholesterol [Mass/Vol] 152 mg/dL Normal 150-200 [facility] Comment on above: Performed By: #### 1 744-2, 1920-05, 03210-0 #### [facility] ([id number]) [address], [address] [place] [address] Cholesterol in HDL [Mass/Vol] 34 mg/dL Low >39 [facility] Comment on above: Result Comment: HDL <40 mg/dL - High Risk HDL > or = 40mg/dL- Desirable HDL >60 mg/dL - Negative Risk Performed By: #### 1 744-2, 1920-05, #### [facility] ([id number]) [address], [address] [place] [address] Cholesterol in LDL [Mass/Vol] 99 mg/dL Normal <130 [facility] Comment on above: Result Comment: LDL <100 mg/dL - Desirable LDL >160 mg/dL - High Risk Performed By: #### 1 744-2, 1920-05, #### [facility] ([id number]) [address], [address] [place] [address] Cholesterol in VLDL [Mass/Vol] 19 mg/dL Normal 0-30 [facility] Comment on above: Performed By: #### 1 744-2, 1920-05, 54863-3 #### [facility] ([id number]) [address], [address] [place] [address] CHOLESTEROL:HDL 4.5 Normal 1.0-5.0 [facility] Comment on above: Performed By: #### 1 744-2, 1920-05, 51151-1 #### [facility] ([id number]) [address], [address] [place] [address] Triglyceride [Mass/Vol] 97 mg/dL Normal 27-150 [facility] Comment on above: Performed By: #### 1 744-2, 1920-05, 61445-3 #### [facility] ([id number]) [address], [address] [place] [address] Physician Referralon 023 Physician Referral [id number] .00TIFF Normal [facility] MRI Shoulder w/o Lefton MRI Shoulder w/o Left HISTORY: Shoulder pain radiating into the elbow. Patient with syndrome. Bursitis. Adhesive capsulitis. TECHNIQUE: Multiplanar multisequence MRI of the shoulder was performed without contrast. COMPARISON: Shoulder radiographs 09/11/2022. FINDINGS: The acromioclavicular joint is intact. The acromion is curved. Coracoclavicular ligament intact. Small amount of subacromial/subdeltoi d bursal fluid containing numerous tiny loose bodies. [...] by Ramy Reynoso on 10/11/2022 1517 Normal [facility] Veterinary Epidemiologist MG MAMM SCREEN 3D YOANDY CADon 06-22-2022 MG MAMM SCREEN 3D YOANDY CAD Patient: KENNA TREVIÑO Exam Date: 06/22/2022 : 1975 Gender:F Ordering : TULIO CHAMBERS CNP Admission #: [id number] Family : Order #: [id number] CLICK HERE TO VIEW EXAM RADIOLOGY REPORT [...] breast cancer at age 45. LOCATION: [facility] BREAST COMPOSITION: Heterogeneously dense,which may obscure [...] MD on 06/22/2022 at 11:08 Normal [facility] KOLTON by IFAon 04-23-2022 Antinuclear Antibodies, IFA Negative Normal [facility] Comment on above: Result Comment: Nega tive <1:80 Borderline 1:80 Positive >1:80 ICAP nomenclature: AC-0 For more information about Hep-2 cell patterns use ANApatterns.org, the official website for the International Consensus on Antinuclear Antibody (KOLTON) Patterns (ICAP). Performed By: #### A NAIFA #### [facility] [address] [address] [address] Lucius Mcmahon XR CSPINE 2_3 VIEWSon 2021 XR CSPINE 2_3 VIEWS EXAMINATION: XR CSPINE 2_3 VIEWS HISTORY: Pain of left shoulder [...] ISAIAS FAIRBANKS Date: 2022-04-22 08:21 Normal [facility] ANTISTREPTOLYSIN O AB (ASO)o n 04-21-2022 Antistreptolysin O Ab 26.6 IU/mL Normal 0.0-200.0 [facility] Comment on above: Performed By: #### A SOAB ####[facility] [id number] [place], [place] [address]KrDr. Lucius Mcmahon RHEUMATOID FACTORon 04-21-20 22 RA Latex Turbid. <10.0 Normal <14.0 [facility] Comment on above: Performed By: #### R F #### [facility] [address] [address] [address] Lucius Mcmahon XR SHOULDER LT 2V [...] DIPAK DIAZ Date: 2022-04-21 21:29 Normal [facility] CBC AUTO DIFFon 04-20-2022 BASO # 0.0 103/ul Normal 0.0-0.1 [facility] Comment on above: Performed By: #### C BC #### [facility] [address] [address] [address] Lucius Mcmahon Basophils/100 WBC (Bld) 0.5 % Normal 0.2-2.0 [facility] Comment on above: Performed By: #### C BC #### [facility] [address] [address] [address] Lucius Mcmahon EO # 0.2 103/ul Normal 0.0-0.7 [facility] Comment on above: Performed By: #### C BC #### [facility] [address] [address] [address] Lucius Mcmahon Eosinophils/100 WBC (Bld) 2.2 % Normal 0.9-7.0 [facility] Comment on above: Performed By: #### C BC #### [facility] [address] [place] [address] Dr. Lucius Mcmahon Erythrocyte distribution width (RBC) [Ratio] 13.4 % Normal 11.0-15.0 [facility] Comment on above: Performed By: #### C BC #### [facility] [address] [place] [address] Dr. Lucius Mcmahon Hematocrit (Bld) [Volume fraction] 46.3 % Normal 36.0-48.0 [facility] Comment on above: Performed By: #### C BC #### [facility] [address] [place] [address] Dr. Lucius Mcmahon Hemoglobin (Bld) [Mass/Vol] 14.9 g/dL Normal 12.0-16.0 [facility] Comment on above: Performed By: #### C BC #### [facility] [address] [place] [address] Dr. Lucius Mcmahon IG # 0.05 10e3/ul Critically high 0.00-0.03 [facility] Comment on above: Performed By: #### C BC #### [facility] [address] [place] [address] Dr. Lucius Mcmahon IG % 0.7 % Critically high 0.0-0.5 [facility] Comment on above: Performed By: #### C BC #### [facility] [address] [place] [address] Dr. Lucius Mcmahon LYMPH # 2.4 103/ul Normal 1.2-3.8 [facility] Comment on above: Performed By: #### C BC #### [facility] Laboratory [address] [place] [address] Dr. Lucius Mcmahon Lymphocytes/100 WBC (Bld) 32.0 % Normal 20.5-60.0 [facility] Comment on above: Performed By: #### C BC #### [facility] Laboratory [address] [place] [address] Dr. Lucius Mcmahon MANUAL DIFF REQ NO Normal [facility] Comment on above: Performed By: #### C BC #### [facility] Laboratory [address] [place] [address] Dr. Lucius Mcmahon MCH (RBC) [Entitic mass] 28.1 pg Normal 26.7-34.0 [facility] Comment on above: Performed By: #### C BC #### [facility] Laboratory [address] [place] [address] Dr. Lucius Mcmahon MCHC (RBC) [Mass/Vol] 32.2 g/dL Normal 29.9-35.2 [facility] Comment on above: Performed By: #### C BC #### [facility] Laboratory [address] [place] [address] Dr. Lucius Mcmahon MCV (RBC) [Entitic vol] 87.2 fL Normal 81.0-99.0 [facility] Comment on above: Performed By: #### C BC #### [facility] Laboratory [address] [place] [address] Dr. Lucius Mcmahon MONO # 0.5 103/ul Normal 0.3-0.8 [facility] Comment on above: Performed By: #### C BC #### [facility] Laboratory [address] [place] [address] Dr. Lucius Mcmahon Monocytes/100 WBC (Bld) 7.2 % Normal 1.7-12.0 [facility] Comment on above: Performed By: #### C BC #### [facility] Laboratory [address] [place] [address] Dr. Lucius Mcmahon NEUT # 4.3 103/ul Normal 1.4-6.5 [facility] Comment on above: Performed By: #### C BC #### [facility] Laboratory [address] [place] [address] Dr. Lucius Mcmahon Neutrophils/100 WBC (Bld) 57.4 % Normal 43.0-75.0 [facility] Comment on above: Performed By: #### C BC #### [facility] Laboratory [address] [place] [address] Dr. Lucius Mcmahon Platelet mean volume (Bld) [Entitic vol] 9.3 fL Critically low 9.5-13.5 [facility] Comment on above: Performed By: #### C BC #### [facility] Laboratory [address] [address] [address] Lucius Mcmahon PLT 279 103/ul Normal 150-450 [facility] Comment on above: Performed By: #### C BC #### [facility] [address] [address] [address] Lucius Mcmahon RBC 5.31 106/ul Normal 4.20-5.40 [facility] Comment on above: Performed By: #### C BC #### [facility] Laboratory [address] [address] [address] Lucius Mcmahon WBC 7.4 103/ul Normal 4.0-11.0 [facility] Comment on above: Performed By: #### C BC #### [facility] Laboratory [address] [address] [address] Lucius Mcmahon CRPon 04-20-2022 CRP [Mass/Vol] mg/L Normal <=1.0 [facility] Comment on above: Performed By: #### C RP, URIC ####[facility] [address] [address]Dr. Lucius Mcmahon [facility] SED RATE 14 mm/hr Normal <=20 [facility] Comment on above: Performed By: #### S EDR #### [facility] Laboratory [address] [address] [address] Lucius Mcmahon URIC ACID SERUMon 04-20-2022 Urate [Mass/Vol] 4.4 mg/dL Normal 2.6-6.0 [facility] Comment on above: Performed By: #### C RP, URIC ####[facility] [address] [id number]. Lucius Mcmahon GLYCOHEMOGLOBIN A1Con 2021 ADA RECOMMENDATION SEE BELOW Normal [facility] Comment on above: Result Comment: ADA RECOMMENDED LIMIT 4.0 - 6.0 ADA THERAPEUTIC TARGET < 7.0 ACTION SUGGESTED > 7.0 Performed By: #### A 1C #### [facility] Laboratory [address] [place] [address] Dr. Lucius Mcmahon Glucose [Mass/Vol] 108 mg/dL Normal [facility] Comment on above: Performed By: #### A 1C #### [facility] Laboratory [address] [place] [address] Dr. Lucius Mcmahon HbA1c (Bld) [Mass fraction] 5.4 % Normal 4.5-6.2 [facility] Comment on above: Performed By: #### A 1C #### [facility] Laboratory [address] [place] [address] Dr. Lucius Mcmahon PROF CHEM 8 (BAS METB)on Anion gap [Moles/Vol] 10.6 mmol/L Normal [facility] Comment on above: Performed By: #### B MP #### [facility] Laboratory [address] [place] [address] Dr. Lucius Mcmahon Calcium [Mass/Vol] 8.5 mg/dL Normal 8.5-10.1 [facility] Comment on above: Performed By: #### B MP #### [facility] Laboratory [address] [place] [address] Dr. Lucius Mcmahon Chloride [Moles/Vol] 104 mmol/L Normal 98-107 [facility] Comment on above: Performed By: #### B MP #### [facility] Laboratory [address] [place] [address] Dr. Lucius Mcmahon CO2 [Moles/Vol] 26.8 mmol/L Normal 21.0-32.0 [facility] Comment on above: Performed By: #### B MP #### [facility] Laboratory [address] [place] [address] Dr. Lucius Mcmahon Creatinine [Mass/Vol] 0.64 mg/dL Normal 0.55-1.02 [facility] Comment on above: Performed By: #### B MP #### [facility] Laboratory [address] [place] [address] Dr. Lucius Mcmahon EGFR-AF BOTSWANAN >60 Normal >=60 [facility] Comment on above: Performed By: #### B MP #### [facility] Laboratory [address] [address] [address] Lucius Mcmahon EGFR-NON AF BOTSWANAN >60 Normal >=60 [facility] Comment on above: Performed By: #### B MP #### [facility] [address] [address] [address] Lucius Mcmahon Glucose [Mass/Vol] 93 mg/dL Normal 74-106 [facility] Comment on above: Performed By: #### B MP #### [facility] [address] [address] [address] Lucius Mcmahon Potassium [Moles/Vol] 4.4 mmol/L Normal 3.5-5.1 [facility] Comment on above: Performed By: #### B MP #### [facility] [address] [address] [address] Lucius Mcmahon Sodium [Moles/Vol] 137 mmol/L Normal 136-145 [facility] Comment on above: Performed By: #### B MP #### [facility] [address] [address] [address] Lucius Mcmahon Urea nitrogen [Mass/Vol] 10.0 mg/dL Normal 7.0-18.0 [facility] Comment on above: Performed By: #### B MP #### [facility] [address] [address] [address] Lucius Mcmahon Urea nitrogen/Creatinine [Mass ratio] 15.6 mg/mg Normal [facility] Comment on above: Performed By: #### B MP #### [facility] Laboratory [address] [address] [address] Lucius Mcmahon Vital Signs Date Time Vital Sign Value Performing Clinician Hue reyes 12-24-2023 13:21-0400 Blood Pressure Location Ant CATALAN [facility] 12-24-2023 13:21-0400 Diastolic blood pressure 88 mm[Hg] Ant CATALAN [facility] 12-24-2023 13:21-0400 Heart rate 80 /min Ant CATALAN [facility] 12-24-2023 13:21-0400 Respiratory rate 16 /min Ant WADEL [facility] [place] 12-24-2023 13:21-0400 Systolic blood pressure 128 mm[Hg] Ant OLVERAL [facility] [place] Encounters Encounter Date Encounter Type Care Provider Facility Start: 02-12-2024 ambulatory Mary Ellen Siddiqi Facility: [facility] Start: 01-30-2024 End: 01-30-2024 Emergency department patient visit ANDRÉS RICHARDSON [facility] Start: 01-23-2024 ambulatory Ant CATALAN Facility:[facility] Start: 12-24-2023 End: 12-25-2023 ambulatory Ant CATALAN Facility: [facility] Start: 12-24-2023 End: 12-24-2023 Patient encounter procedure Ant CATALAN General Surgery Nill/Said [facility] Start: 11-25-2023 End: 11-25-2023 ambulatory HOLLY AICHHOLZ Not Available Start: 10-22-2023 Telephone encounter Gerri NAVARRETE Work Phone: [facility] Surgery Start: 10-04-2023 End: 10-05-2023 [facility] Start: 09-24-2023 End: 09-24-2023 ambulatory HOLLY AICHHOLZ Not Available Start: 03-18-2023 End: 03-19-2023 ambulatory Nic Shelley MD Facility: [facility] Start: 11-15-2022 ambulatory MAXWELL GALLAGHER Facility:H 1 Start: 08-16-2022 End: 08-17-2022 ambulatory MAXWELL GALLAGHER Facility:[facility] Start: 07-17-2022 End: 07-18-[address] ISAIAS FAIRBANKS Facility:[facility] Start: 07-16-2022 End: 07-16-[address] ISAIAS FAIRBANKS Facility:[facility] Start: 06-22-2022 End: 06-23-[address] Dipak Marks Facility:[facility]1 Start: 05-17-2022 End: 05-18-2022 ambulatory MAXWELL GALLAGHER Facility:[facility] Start: 05-02-2022 End: 05-02-[address] ISAIAS FAIRBANKS Facility:[facility] Start: 04-20-2022 End: 04-21-2022 ambulatory MANAGER GROCERY HOLLY MARCELOPOLLO Facility:[facility]1 Start: 03-21-2022 End: 03-22-2022 ambulatory MANAGER GROCERY HOLLY AICChrisPOLLO Facility:[facility]1 Start: 03-01-2022 ambulatory MAXWELL GALLAGHER Facility:H 1 Start: 02-14-2022 End: 02-15-2022 ambulatory MAXWELL GALLAGHER Facility:[facility]1 Start: 12-27-2021 End: 12-28-[address] ISAIAS FAIRBANKS Facility:[facility] Start: 12-22-2021 End: 12-22-[address] CONSTANZA JACOBSON Facility:[facility]1 Procedures Date Procedure Procedure Detail Performing Clinician Anal sphincterotomy Ant NILL Cholecystectomy Ant NILL Dilation and curettage Abner bruce NILL Hemorrhoidectomy Ant NIL L Hysteroscopy Ant NILL Laparoscopy Ant NILL Ligation of fallopian tube Ian mina NILL Repair of musculoten dinous cuff of shoulder Nat NILL Revision of repair of rotator cuff Ant NILL Right salpingectomy Ant NILL Structure of epicond yle (body structure) Ant NILL Plan of Treatment Date Care Activity Detail Author Start: 02-20-2031 DTaP,Tdap and Td Vaccines (2 - Td or Tdap) DTaP,Tdap and Td Vaccines (2 - Td or Tdap) [facility] Start: 08-16-2024 Adult BMI Screening Adult BMI Screen ing [facility] Start: 08-16-2024 Tobacco Screening Tobacco Screening [facility] Start: 06-07-2023 Influenza vaccination Influenza Vacc ine [facility] Start: 1992 Adult BMI Follow Up Plan Adult BMI Follow Up Plan [facility] Start: 1986 Depression Screening Depression Scre ening [facility] Start: 1974 Tobacco Counseling Tobacco Counselin g [facility] Immunizations Immunization Date Immunization Notes Care Provider Fa cility 02-20-2021 tetanus toxoid, reduced diphtheria toxoid, and acellular pertussis vaccine, adsorbed 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 White 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 Phone: [facility] NEGATED: Highlighted row has not occurred!12-24-2023 influenza virus vaccine, unspecified formulation Ant CATALAN [facility] Payers Date Payer Category Payer Private Health Insurance 2022 Medicaid [id number] 1975 Unknown [id number] 2.16.84 [id number] 1974 Unknown [id number] 2.16.84 0.1.081051.3.579.2.593 1974 Unknown [id number] 2.16.84 0.1.536988.3.579.2.593 1974 Unknown [id number] 2.16.84 0.1.607935.3.579.2.593 1974 Unknown [id number] 2.16.84 0.1.557647.3.579.2.593 1974 Unknown [id number] 2.16.84 0.1.134764.3.579.2.593 1974 Unknown [id number] 2.16.84 0.1.609120.3.579.2.593 1974 Unknown [id number] 2.16.84 0.1.632562.3.579.2.593 1974 Unknown [id number] 2.16.84 0.1.842423.3.579.2.593 1974 Unknown [id number] 2.16.84 0.1.884734.3.579.2.593 1974 Unknown [id number] 2.16.84 0.1.741274.3.579.2.593 1974 Unknown [id number] 2.16.84 0.1.485589.3.579.2.593 1974 Unknown [id number] 2.16.84 0.1.832721.3.579.2.593 1974 Unknown [id number] 2.16.84 0.1.181434.3.579.2.593 1974 Unknown [id number] 2.16. 840.1.961547.3.579.2.196 1974 Unknown [id number] 2.16.84 0.1.585474.3.579.2.1259 1974 Unknown [id number] 2.16.840 .1.932953.3.579.2.1259 1974 Unknown [id number] 2.16.8 40.1.342973.3.579.2.727 1974 Unknown [id number] 2.16.8 40.1.627004.3.579.2.727 1974 Unknown [id number] 2.16.8 40.1.627231.3.579.2.1286 1974 Unknown [id number] 2.16.84 0.1.531539.3.579.2.1286 1959 Private Health Insurance [id number] Social History Date Type Detail Facility Start: 04-02-2019 [facility] History of tobacco use Cigarette Smoker P [facility] Start: 04-02-2019 End: 11-17-2020 Cigarettes smoked current (pack per day) - Reported 0.5 [facility] Start: 04-02-2019 Tobacco use and exposure Smokeless tobacco non-user [facility] Start: 08-16-2023 Alcohol intake 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) [facility] Start: 11-17-2020 End: 08-16-2023 Tobacco use panel [facility] Adolescent depressio n screening assessment 0 [facility] Start: 1975 Sex Assigned At Not on file [facility] Start: 12-24-2023 Tobacco smoking status Heavy t obacco smoker (finding) [facility] Procedure Code Equipment Code Equipment Origin al Text Equipment Identifier Dates Impl Fx Kntls Multifix Ppk 4.5 Rpl [id number] - Sn/A - [id number] Start: 04-15-2019 [address] - [id number] - [id number] Start: 09-28-2020 Comment on above: Description: 5.5 mm self tapping Mesh Srg Clgn Rcnst Scfld Lg - [id number] - [id number] Start: 09-28-2020 Anch Bn 3 W Ascp Dlv Sys - [id number] - [id number] Start: 09-28-2020 Functional Status Date Assessment Result Facility 12-24-2023 Functional Status N/A [facility] Clinical Notes 12-27-2021 to 12-24-2023 Telephone Encounter - Delmi Mullen - 10/22/2023 12:50 PM ESTTelephone Encounter - Delmi Mullen - 10/22/2023 12:50 PM ESTTelephone Encounter - Delmi Mullen - 10/22/2023 12:50 PM EST Note Date & Type Note Facility 12-24-2023 Note Chief Complaint consultation for colonoscopy HPI Staff 48 year old female presents on consultation from Holly Chambers for screening colonoscopy. Reports several month history of central abdominal pain. Describes pain as sharp and stabbing. Reports she is also experiencing rectal pain, rectal bleeding and change in bowel habits. Reports daily nausea and vomiting. No unexplained weight loss. Never had colonoscopy in the past. No known family history of colon cancer. History of Present Illness 48 yo female with h/o asthma, bipolar d/o, GERD, peripheral neuropathy, referred for abd pain, change in bowel habits; patient reports 5 month h/o postprandial epigastric and mid abd pain, sharp, ache, crampy at times; alternating loose stools and constipation, no blood in stools or melena, no N/V; no wt loss; on ibuprofen prn, no asa; no dysphagia or odynophagia; abdominal operations significant for cholecystectomy; tubal ligation, laparoscopy, JACOB with left salpingo-oophorectomy; no previous endoscopy; smokes daily, no fmhx of GI malignancy or IBD. Review of Systems PHQ Score Initial Depression Screen Score: 0 SCORE ROS - Provider Constitutional: no fever, no sweats, no weight loss. Eyes: no glasses, no blurred vision, no visual loss. ENMT: no dentures, no hoarseness, no swallowing difficulties, no hearing loss, no ear infection(s), no nose bleeds. Cardiovascular: normal blood pressure, no chest pain, regular heartbeat, no heart murmur. Respiratory: no shortness of breath, no cough, no asthma, no wheezing. Gastrointestinal: no nausea, no vomiting, no diarrhea, no constipation, no blood in stool, yes change in bowel habits, yes abdominal pain, no hepatitis. Genitourinary: no kidney stones, no urine infection, no dysuria. Musculoskeletal: no pain, no weakness. Skin: no changing moles, no rash, no skin lumps. Neurologic: no seizures, no epilepsy, no headache. Psychiatric: no emotional or psychiatric problem. Heme/Lymph: no bleeding problems, no anemia, no blood clots, no transfusions. Allergy/Immunologic: no swollen lymph nodes/glands, no IV drug abuse. Other: Additional ROS info: Except as noted in the above Review of Systems and in the History of Present Illness, all other systems have been reviewed and are negative or noncontributory. Physical Exam Vitals & Measurements HR: 80(Peripheral) RR: 16 BP: 128/88 HT: 65 in HT: 165 cm WT: 119.3 kg WT: 262.46 lb BMI: 43.82 HEENT: normal conjunctiva, sclera clear, no scleral icterus, EOM intact, PERRLA, oral mucosa moist without lesions. Neck: trachea midline, no mass, symmetric, no thyromegaly or nodules, no adenopathy Respiratory: lungs CTA, respirations non labored. Cardiovascular: regular rate and rhythm, no murmur, no pedal edema or varicosities. Gastrointestinal: obese,soft, non distended, mild tenderness, epigastrium and periumbilical areas no masses, no palpable hernias, diastasis recti no, no hepatosplenomegaly; normal bs Lymphatic: no cervical adenopathy, no supraclavicular adenopathy. Musculoskeletal: normal gait, digits and nails without infection, nodes, cyanosis, clubbing. Skin: no rashes, no lesions, no ulcers, no subcutaneous nodules, induration. Psychiatric/Neuro: oriented to time, place, person, judgement normal, affect appropriate for age, insight intact, no focal deficits. Tests: review of old records completed , Discussed surgical options, risks, and possible complications with patient. Assessment/Plan 1. Change in bowel habits (R19.4: Change in bowel habit) plan EGD and colonoscopy under anesthesia, informed consent obtained. 2. Epigastric pain (R10.13: Epigastric pain) see # 1 3. BMI 40.0-44.9, adult (Z68.41: Body mass index [BMI] 40.0-44.9, adult) recommend diet and exercise. 4. Tobacco use (Z72.0: Tobacco use) We strongly recommend to quit tobacco use. Cigarette smoking harms nearly every organ of the body, causes many diseases, and reduces the health of smokers in general. Quitting smoking lowers your risk for smoking-related diseases and can add years to your life. We encourage you to visit www.smokefree.gov access to helpful resources including free telephone support. If you decide on prescription treatment to help you quit, your family doctor would be happy to provide these. Follow-up No qualifying data available Problem List/Past Medical History Ongoing Anxiety Asthma Bipolar disorder BMI 40.0-44.9, adult Change in bowel habits Depression Epigastric pain GERD (gastroesophageal reflux disease) Hearing loss Lower extremity edema Morbid obesity Peripheral neuropathy Seasonal allergies Tobacco use Tobacco user Historical No qualifying data Procedure/Surgical History Abdominal hysterectomy and left salpingo-oophorectomy, Anal sphincterotomy, Cholecystectomy, Dilation and curettage, Endometrial ablation, Epicondyle, Hemorrhoidectomy, Hysteroscopy, Laparoscopy, Revision of repair of rotator cuff, Right salpingectom (more content not included)... [facility] Comment on above: Result Comment: Elec tronically Signed By: ALAYNA LÓPEZ, Ant Cleary\Date and Time Signed: 12/24/23 14:25 EDT 10-22-2023 Miscellaneous Notes Called Kenna regarding the screening colonoscopy referral that our office received from Dr. Richardson, call was unable tyo be dialed at this time. Called Kenna regarding the referral that our office received, the call was unable to go through at this time. Called Mani/spouse's number, was unable to leave a message as the voicemail box is full. Called Franklyn regarding the referral that our office received, I was unable to leave a message as call can't be completed at this time. documented in this encounter [facility] 10-22-2023 Telephone encounter Note Called Kenna regarding the screening colonoscopy referral that our office received from Dr. Richardson, call was unable tyo be dialed at this time. [facility] 10-22-2023 Telephone encounter Note Called Kenna regarding the referral that our office received, the call was unable to go through at this time. Called Mani/spouse's number, was unable to leave a message as the voicemail box is full. [facility] 10-22-2023 Telephone encounter Note Called Franklyn regarding the referral that our office received, I was unable to leave a message as call can't be completed at this time. [facility] 08-16-2022 Note CONSULTATION CONSULTATION DATE: 08/16/2022 HISTORY OF PRESENT ILLNESS: This is a 46-year-old female returning to the clinic for a three month follow up for her chronic neck and shoulder pain. The patient has been seen here multiple times, but is also under the care of Orthopedics at [facility]. At her last office visit on 05/17/2022, she had a left bicipital tendon injection which afforded her short term relief. She has been under the care of [facility] for some time and, back in [...] mg daily, diclofenac 75 mg b.i.d. and Wayside 5/325 b.i.d. She is in need of a refill for her diclofenac and Wayside. At her last subsequent appointments, education was [...] will refill her diclofenac 75 mg b.i.d., Wayside 5/325 b.i.d. I explained in detail to the patient that it is her responsibility to call [facility] to obtain a new physical therapy order and to follow through with Ortho's directions. No pain procedures will be done on her shoulder under physical therapy is completed and she has followed through with Orthopedics and their recommendations. I further note that, due to patient's non-compliance with physical therapy, that following this current Wayside refill, that any further refills are contingent upon evidence of her at least starting her physical therapy per [facility]. Patient has been aware of this and states agreement of. We will see her in three months' time unless otherwise indicated. [facility] 07-18-2022 Note PROCEDURE: XR ANKLE LT [...] authenticated by: ISAIAS FAIRBANKS Date: 2022-07-18 07:15 [facility] 07-18-2022 Note PROCEDURE: XR ANKLE LT [...] authenticated by: ISAIAS FAIRBANKS Date: 2022-07-18 07:15 [facility] 07-16-2022 Note PROCEDURE: XR ANKLE LT MIN 3 V HISTORY: C/O: a pain ; left ankle pain after falling COMPARISON: None. FINDINGS: BONES:No fracture, acute abnormality, or significant arthropathy. SOFT TISSUES:Moderate soft tissue swelling. No radiopaque foreign body. EFFUSION:None visible. OTHER: Negative. IMPRESSION: 1. Moderate swelling suggesting soft tissue injury. 2. No acute bone abnormality. Electronically authenticated by: ISAIAS FAIRBANKS Date: 2022-07-16 11:29 [facility] 07-16-2022 Note PROCEDURE: XR HUMERU S LT [...] authenticated by: ISAIAS FAIRBANKS Date: 2022-07-16 11:27 [facility] 07-16-2022 Note PROCEDURE: XR HUMERU S LT [...] authenticated by: ISAIAS FAIRBANKS Date: 2022-07-16 11:27 [facility] 05-17-2022 Note CONSULTATION PROCEDURE DATE: 05/17/2022 PRE [...] be followed up in the office. [facility] 05-17-2022 Note CONSULTATION CONSULTATION DATE: 05/17/2022 HISTORY OF PRESENT ILLNESS: This is a 46-year-old female who returns to the clinic for a three month follow up for her chronic bilateral shoulder pain. She was last seen on 02/14/2022 which, at that time, she was sent to orthopedics in [place] for re-evaluation. She has seen them in [...] During her ER visit, she was prescribed Wayside 5/325 b.i.d., which was beneficial to her. [...] discontinuing the tramadol and maintaining her on Wayside 5/325 b.i.d. The patient was encouraged to follow through with physical therapy as ordered per orthopedics. We will see her in three month's time, unless otherwise indicated. Patient acknowledges. [facility] 05-02-2022 Note PROCEDURE: XR FOREAR M [...] by: ISAIAS FAIRBANKS Date: 2022-05-02 11:54 [facility] 05-02-2022 Note PROCEDURE: XR FOREAR M [...] by: ISAIAS FAIRBANKS Date: 2022-05-02 11:54 [facility] 02-14-2022 Note CONSULTATION CONSULTATION DATE: 02/14/2022 [...] her last appointment, she was referred to [facility] and, according to the patient, they [...] we will re-send her orthopedic referral to [facility]. Patient is also provided the number and was instructed, if they do not call within five days, to call them. Refill for her tramadol 50 mg b.i.d. will be sent as well. Patient was asked to call the office with an update once she is seen by orthopedics. Patient states understanding and agrees with the plan of care. [facility] Signed and Approved by: MAXWELL GALLAGHER . 02/15/2022 12:52:00 [facility] 12-27-2021 Note PROCEDURE: XR SHOULD ER [...] authenticated by: ISAIAS FAIRBANKS Date: 2021-12-27 14:29 [facility] 12-27-2021 Note CONSULTATION PAIN MANAGEMENT CONSULTATION [...] her treatments. 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 [facility] Signed and Approved by: MAXWELL GALLAGHER . 01/11/2022 16:24:00 [facility] Evaluation + Plan note No data available for this section [facility] Discharge instructions No data available for this section General Surgery [facility] Instructions Not on filedocumente d in this encounter [facility] Progress note No data available for this section General Surgery [facility] Summary Purpose Family History No Family History Records FoundNo Family History Records FoundNo Family History Records FoundNo Family History Records Found No data available for this section No Family History Records FoundNo Family History Records Found Advance Directives No Advanced Directives Records FoundNo Advanced Directives Records FoundNo Advanced Directives Records FoundNo Advanced Directives Records FoundNo Advanced Directives Records FoundNo Advanced Directives Records Found Additional Source Comments INFORMATION SOURCE (unrecogn ized section and content) DATE CREATED AUTHOR 10/11/[address] [facility] dical Specialist DATE CREATED AUTHOR AUTHOR'S ORGANIZ ATION 11/15/2022 [facility] DATE CREATED AUTHOR AUTHOR'S ORGANIZ ATION 04/01/2023 [facility] DATE CREATED AUTHOR AUTHOR'S ORGANIZ ATION 11/25/[address] [facility] dical Specialists [facility] DATE CREATED AUTHOR AUTHOR'S ORGANIZ ATION 01/29/2024 [facility] DATE CREATED AUTHOR AUTHOR'S ORGANIZ ATION 02/01/2024 [facility] Care Teams (unrecognized sec tion and content) Senior Manager Creative Services Relationship Specialty Start Date End Date Andrés Richardson MD [address] [place] [address] PCP - General Family Medicine 10/22/23 FOR RECORDS PERTAINING TO PATIENTS WHO ARE [...] BE BASED ON THE PRIMARY CLINICAL RECORDS. [facility]. provides no warranty or guarantee of the accuracy or completeness of information in this document.
[2024-02-05 07:56] VITALS: BMI 41.7
[2024-02-05] MEDS: LACTATED RINGER'S SOLUTION 1,000 ML 50 ML IV (08:06)
[2024-02-05 11:02] VITALS: BP 149/111; PULSE 89; TEMP 36.2; O2SAT 96
[2024-02-05 11:32] VITALS: BP 145/115; PULSE 91; O2SAT 97
== END 2024-02-05 11:32 | disposition home or self-care (01) ==
PROVIDERS: PCP Nurse Practitioner; Visit Provider Surgery
PROC: (CPT 00813; principal; 2024-02-05 09:10)
DX: R10.9 Unspecified abdominal pain (principal); K62.5 Hemorrhage of anus and rectum; R19.4 Change in bowel habit; K29.70 Gastritis, unspecified, without bleeding; K44.9 Diaphragmatic hernia without obstruction or gangrene; R11.0 Nausea; K62.89 Other specified diseases of anus and rectum; K63.5 Polyp of colon; R10.13 Epigastric pain; K21.9 Gastro-esophageal reflux disease without esophagitis; F41.9 Anxiety disorder, unspecified; F31.9 Bipolar disorder, unspecified; E66.01 Morbid (severe) obesity due to excess calories; Z68.41 Body mass index [BMI] 40.0-44.9, adult; G62.9 Polyneuropathy, unspecified; Z90.49 Acquired absence of other specified parts of digestive tract; Z98.51 Tubal ligation status; Z90.710 Acquired absence of both cervix and uterus
CPT/HCPCS: 00813; 43239; 45385; 88305; 88342; J2704

== ENCOUNTER 2024-08-21 10:18 | Outpatient (OUT) | payer OTHER, SELFPAY ==
--- NOTE | 2024-08-21 10:20 | MM_ITS ---
Patient Name: PRASAD REAGAN MR#: [id number] : 1975 Exam Date: 08/21/2024 Ordering Doctor: [facility] REPORT PROCEDURE: MM TOMOSYNTHESIS SCREENING BI COMPARISON: MM TOMOSYNTHESIS SCREENING BI, 08/19/2023. MG MAMM SCREEN 3D YOANDY CAD, 06/22/2022. MG MAMM YOANDY DIAG W CAD, 02/02/2014. INDICATIONS: Screening Calculator Name NCI Breast Cancer Risk Assessment Tool 5 Year Breast Cancer Risk 1.70% Lifetime Breast Cancer Risk 16.30% Personal Breast Cancer No Personal Ovarian Cancer No Treatments None Family Cancers Sister with breast cancer at age 46. LOCATION: [facility] BREAST COMPOSITION: The breasts are heterogeneously dense,which may obscure small masses. FINDINGS: DIAGNOSTIC CATEGORY 2--BENIGN FINDING: RIGHT BREAST: No significant suspicious finding. No significant change has occurred. LEFT BREAST: No significant suspicious finding. Scattered benign-appearing lymph nodes are present. No significant change has occurred. RECOMMENDATIONS: ROUTINE MAMMOGRAM AND CLINICAL EVALUATION IN 12 MONTHS. PLEASE NOTE: A NORMAL MAMMOGRAM DOES NOT EXCLUDE THE POSSIBILITY OF BREAST CANCER. A CLINICALLY SUSPICIOUS PALPABLE LUMP SHOULD BE BIOPSIED. Dictated by: Zane Muñoz M.D. on 08/21/2024 at 12:39 Approved by: Zane Muñoz M.D. on 08/21/2024 at 12:43
== END 2024-08-21 10:19 | disposition home or self-care (01) ==
LOC: MAMMO 10:18
PROVIDERS: PCP Nurse Practitioner; Visit Provider Nurse Practitioner
DX: Z12.31 Encounter for screening mammogram for malignant neoplasm of breast (principal); Z80.3 Family history of malignant neoplasm of breast
CPT/HCPCS: 77063; 77067